=== PATIENT | male | born 1955 | race Caucasian/White ===

== ENCOUNTER → 2019-03-22 | Outpatient (CLI) | payer MEDICARE, BC | LOC: LL.CLIN 11:00 | PROVIDERS: ATTEND Orthopaedic Surgery | DX: M25.569 Pain in unspecified knee (principal); M76.892 Other specified enthesopathies of left lower limb, excluding foot; M76.891 Other specified enthesopathies of right lower limb, excluding foot; I99.8 Other disorder of circulatory system; M25.861 Other specified joint disorders, right knee | CPT/HCPCS: 73564-50; 99203 ==

== ENCOUNTER 2019-07-06 17:54 | Emergency (ER) | payer MEDICARE, BC ==
[2019-07-06 17:58] VITALS: BP 173/63; PULSE 65
--- NOTE | 2019-07-06 18:43 | EDM.PDOC ---
ED HPI GENERAL MEDICAL PROBLEM - General Chief Complaint: Chest Pain Stated Complaint: elevated lab Time Seen by Provider: 07/06/19 17:57 Source of Information: Reports: Patient, Family History Limitations: Reports: No Limitations - History of Present Illness INITIAL COMMENTS - FREE TEXT/NARRATIVE: Pt seen at outside clinic this AM for chest pain 4 days ago No pain since Does have significant cardiac history with 15 previous stents per patient Pt is currently symptoms free Was reported that troponin from this AM was elevated and pt sent to ER for recheck Consult has been placed for cardiology follow up Onset: Gradual Duration: Day(s):, Resolved Prior to Arrival Location: Reports: Chest Chest Pain Score (Numeric/FACES): 0 - Related Data Allergies Allergy/AdvReac Type Severity Reaction Status Date / Time alcohol Allergy Swelling Verified 11/18/16 12:56 morphine Allergy Swelling Verified 11/18/16 12:56 [id number]-Tjw Reductase Allergy Cough Verified 11/18/16 12:56 Inhibitor ticagrelor [From Brilinta] Allergy Difficulty Verified 07/06/19 18:02 Breathing Home Meds: Home Meds Aspirin 81 mg PO DAILY 02/14/16 [History] Cetirizine [ZyrTEC] 1 tab PO DAILY PRN 02/14/16 [History] Cyclobenzaprine [Flexeril] 1 - 2 tab PO BEDTIME PRN 02/14/16 [History] Gabapentin [Neurontin] 1,200 mg PO BID 02/14/16 [History] Insulin Aspart [NovoLOG] 5 units SQ ASDIRECTED 02/14/16 [History] Insulin Aspart [NovoLOG] 15 units SQ 0800,1200 02/14/16 [History] Insulin Degludec [Tresiba Flextouch U-200] 135 units SQ DAILY 02/14/16 [History] Isosorbide Mononitrate [Imdur] 30 mg PO DAILY 02/14/16 [History] Liraglutide [Victoza] 1.8 mg SQ DAILY 02/14/16 [History] Lisinopril 1 tab PO DAILY 02/14/16 [History] Metoprolol Succinate [Toprol XL] 25 mg PO DAILY 02/14/16 [History] Multivitamin with Minerals [Multiple Vitamin] 1 tab PO TIDMEALS 02/14/16 [ History] Non-Formulary Medication [NF Drug] 1 applic TOP BID PRN 02/14/16 [History] [place]-3/DHA/Epa/Fish Oil [Fish Oil Dr 500 mg Softgel] 1,000 mg PO DAILY [History] Pantoprazole [Protonix] 40 mg PO DAILY 02/14/16 [History] metFORMIN HCl [Metformin HCl ER] 1,000 mg PO BID 02/14/16 [History] Albuterol [Ventolin HFA] 1 - 2 puff INH QID PRN 11/18/16 [History] Fluticasone/Vilanterol [Breo Ellipta 100-25 MCG Inhalation Kit] 1 puff PO DAILY 11/18/16 [History] Prasugrel [Effient] 10 mg PO DAILY 11/18/16 [History] Insulin Aspart [Novolog Flexpen] 18 units SQ 1800 11/19/16 [History] Past Medical History HEENT History: Reports: Cataract, Hard of Hearing, Impaired Vision Cardiovascular History: Reports: Arrhythmia, Bypass, CAD, High Cholesterol, Hypertension, Stents, Other (See Below) Respiratory History: Reports: Asthma, SOB Gastrointestinal History: Reports: GERD, Hemorrhoids Musculoskeletal History: Reports: Back Pain, Chronic Neurological History: Reports: Neuropathy, Diabetic Endocrine/Metabolic History: Reports: Diabetes, Type II, Obesity/BMI 30+ - Infectious Disease History Infectious Disease History: Reports: Chicken Pox, Measles, Mumps - Past Surgical History Head Surgeries/Procedures: Reports: None HEENT Surgical History: Reports: Adenoidectomy, Cataract Surgery, Tonsillectomy Cardiovascular Surgical History: Reports: Coronary Artery Bypass, Coronary Artery Stent Respiratory Surgical History: Reports: None GI Surgical History: Reports: Colonoscopy, EGD Neurological Surgical History: Reports: None Social & Family History - Family History Cardiac: Reports: CAD, [place] - Caffeine Use Caffeine Use: Reports: Coffee ED ROS GENERAL - Review of Systems Review Of Systems: See Below HEENT: Reports: No Symptoms Respiratory: Reports: No Symptoms Cardiovascular: Reports: Chest Pain GI/Abdominal: Reports: No Symptoms ED EXAM, GENERAL - Physical Exam Exam: See Below Exam Limited By: No Limitations General Appearance: No Apparent Distress Neck: Supple Respiratory/Chest: Lungs Clear Cardiovascular: Regular Rate, Rhythm GI/Abdominal: Non-Tender Course - Vital Signs Last Recorded V/S: Last Vital Signs Temp 97.9 F 07/06/19 17:56 Pulse 65 07/06/19 17:56 Resp 20 02/27/20 17:56 BP 173/63 H 07/06/19 17:56 Pulse Ox 100 07/06/19 17:56 - Orders/Labs/Meds Orders: Active Orders 24 hr Category Date Time Status EKG Documentation Completion [RC] ASDIRECTED Care 07/06/19 17:58 Active Labs: Laboratory Tests 07/06/19 07/06/19 Range/Units 18:08 18:08 WBC 8.2 (4.0-10.2) K/uL RBC 4.25 L (4.33-5.41) M/uL Hgb 12.9 L (13.1-16.8) g/dL Hct 39.1 (39.0-49.0) % MCV 92.0 (84.0-98.0) fL MCH 30.4 (28.2-33.3) pg MCHC 33.0 (31.7-36.0) g/dL RDW 14.1 (11.2-14.1) % Plt Count 145 L (150-350) K/uL Neut % (Auto) 48.7 (45.0-80.0) % Lymph % (Auto) 37.7 (10.0-50.0) % [place] % (Auto) 8.8 (2.0-14.0) % Eos % (Auto) 4.3 (0.0-5.0) % Baso % (Auto) 0.5 (0.0-2.0) % Neut # (Auto) 3.98 (1.40-7.00) K/uL Lymph # (Auto) 3.08 (0.50-3.50) K/uL [place] # (Auto) 0.72 (0.00-1.00) K/uL Eos # (Auto) 0.35 (0.00-0.50) K/uL Baso # (Auto) 0.04 (0.00-0.20) K/uL Sodium 139 (136-145) mmol/L Potassium 4.6 (3.5-5.1) mmol/L Chloride 102 (98-107) mmol/L Carbon Dioxide 27.1 (21.0-32.0) mmol/L BUN 31 H (7-18) mg/dL Creatinine 1.39 H (0.51-1.17) mg/dL Est Cr Clr Drug Dosing 57.38 mL/min Estimated GFR (MDRD) 51 mL/min Glucose 255 H (74-106) mg/dL Calcium 9.3 (8.5-10.1) mg/dL Total Bilirubin 0.2 (0.2-1.0) mg/dL AST 30 (15-37) U/L ALT 25 (12-78) U/L Alkaline Phosphatase 109 (46-116) IU/L Troponin I 0.044 (0.000-0.056) ng/mL Total Protein 7.1 (6.4-8.2) g/dL Albumin 3.8 (3.4-5.0) g/dL - Re-Assessments/Exams Free Text/Narrative Re-Assessment/Exam: 07/06/19 18:41 See EKG and lab Troponin WNL Pt asymptomatic D/W usual provider Will follow up and follow up on cardiology referral Departure - Departure Time of Disposition: 18:45 Disposition: Home, Self-Care 01 Clinical Impression: Coronary artery disease Qualifiers: Coronary Disease-Associated Artery/Lesion type: unspecified vessel or lesion type [place] vs. transplanted heart: [place] heart Associated angina: without angina Qualified Code(s): I25.10 - Atherosclerotic heart disease of [place] coronary artery without angina pectoris Instructions: Coronary Artery Disease, Male Referrals: Dorina Hooper PA-C [Primary Care Provider] - Additional Instructions: Follow up in clinic Sepsis Event Note - Evaluation Sepsis Screening Result: No Definite Risk - Focused Exam Vital Signs: Vital Signs Temp Pulse Resp BP Pulse Ox 07/06/19 17:56 97.9 F 65 20 173/63 H 100 Date Exam was Performed: 07/06/19 Time Exam was Performed: 18:38 - My Orders Last 24 Hours: My Active Orders 07/06/19 17:58 EKG Documentation Completion [RC] ASDIRECTED - Assessment/Plan Last 24 Hours: My Active Orders 07/06/19 17:58 EKG Documentation Completion [RC] ASDIRECTED
== END 2019-07-06 18:45 | disposition home or self-care (01) ==
LOC: LL.ED 17:54
DX: I25.10 Atherosclerotic heart disease of native coronary artery without angina pectoris (principal); E78.00 Pure hypercholesterolemia, unspecified; E11.9 Type 2 diabetes mellitus without complications; J45.909 Unspecified asthma, uncomplicated; E66.9 Obesity, unspecified; Z68.36 Body mass index [BMI] 36.0-36.9, adult; K21.9 Gastro-esophageal reflux disease without esophagitis; E11.40 Type 2 diabetes mellitus with diabetic neuropathy, unspecified; Z79.4 Long term (current) use of insulin; Z95.5 Presence of coronary angioplasty implant and graft; Z88.5 Allergy status to narcotic agent; Z79.899 Other long term (current) drug therapy; Z88.8 Allergy status to other drugs, medicaments and biological substances
CPT/HCPCS: 36415; 80053; 84484; 85025; 93005; 99285-25

== ENCOUNTER 2019-12-19 14:30 | Observation (INO) | payer MEDICARE, BC ==
[2019-12-19] MEDS ORDERED: fentaNYL 100 MCG/2 ML SDV IVPUSH ONE (14:57)
[2019-12-19] MEDS ORDERED: diphenhydrAMINE 50 MG/ML SDV IVPUSH ONE (14:58)
[2019-12-19 15:15] LABS: CHLORIDE,CL 101 mmol/L (98-107); SODIUM,NA 137 mmol/L (136-145)
[2019-12-19] MEDS: Sodium Chloride 0.9% 10 ML Syringe FLUSH PRN ×2 (15:16→15:52)
[2019-12-19 15:18] LABS: PTT,PARTIAL THROMBOPLSTIN TIME 23.7 SEC (24.5-32.8)
[2019-12-19] MEDS ORDERED: HYDROmorphone 0.5 MG/0.5 ML Syringe IVPUSH ONE (15:47)
--- NOTE | 2019-12-19 16:30 | EDM.PDOC ---
ED HPI GENERAL MEDICAL PROBLEM - General Chief Complaint: Trauma Stated Complaint: trauma, fall Time Seen by Provider: 12/19/19 14:53 Source of Information: Reports: Patient History Limitations: Reports: No Limitations - History of Present Illness INITIAL COMMENTS - FREE TEXT/NARRATIVE: Patient comes to ER after falling off ladder approx 3 steps high. Landed on metal rail left lateral chest. Has left sided chest pain as main complaint. Also some left sided neck pain, left shoulder discomfort. ABle to get up and walk after incident. Got on 4 [address] and drove self to pickup, then drove pickup. No complaint of leg/pelvis pain. No LOC that he is aware of. Denies hitting head. No other injury complaints at this time. No increased SOB but left chest hurts with inspiration. - Related Data Allergies Allergy/AdvReac Type Severity Reaction Status Date / Time alcohol Allergy Swelling Verified 12/19/19 15:46 morphine Allergy Swelling Verified 12/19/19 15:46 Lvfjyhc-Yvu-Ume Reductase Allergy Cough Verified 12/19/19 15:46 Inhibitor ticagrelor [From Brilinta] Allergy Difficulty Verified 12/19/19 15:46 Breathing Home Meds: Home Meds Aspirin 81 mg PO DAILY 02/14/16 [History] Gabapentin [Neurontin] 600 mg PO DAILY@02/14/16 [History] Insulin Degludec [Tresiba Flextouch U-200] 140 units SQ DAILY 02/14/16 [History] Isosorbide Mononitrate [Imdur] 30 mg PO DAILY@02/14/16 [History] Liraglutide [Victoza] 1.8 mg SQ DAILY 02/14/16 [History] Lisinopril 1 tab PO DAILY 02/14/16 [History] Metoprolol Succinate [Toprol XL] 50 mg PO BEDTIME 02/14/16 [History] Non-Formulary Medication [NF Drug] 1 applic TOP BID PRN 02/14/16 [History] Pantoprazole [Protonix] 40 mg PO DAILY 02/14/16 [History] metFORMIN HCl [Metformin HCl ER] 1,000 mg PO BID 02/14/16 [History] Albuterol [Ventolin HFA] 1 - 2 puff INH QID PRN 11/18/16 [History] Fluticasone/Vilanterol [Breo Ellipta 100-25 MCG Inhalation Kit] 1 puff PO DAILY 11/18/16 [History] Prasugrel [Effient] 10 mg PO DAILY 11/18/16 [History] Insulin Aspart [Novolog Flexpen] 20 units SQ 10,16,22 11/19/16 [History] Acetaminophen [Tylenol Extra Strength] 1,000 mg PO Q4H PRN 12/19/19 [History] Allopurinol [Zyloprim] 300 mg PO DAILY 12/19/19 [History] Cyanocobalamin (Vitamin B-12) [Vitamin B-12] 1,000 mcg PO DAILY 12/19/19 [Hi story] Diclofenac Sodium [Voltaren 1% Gel] 1 applic TOP BID PRN 12/19/19 [History] Fenofibrate 160 mg PO TUTHSA@12/19/19 [History] Fexofenadine [Maida] 180 mg PO DAILY 12/19/19 [History] Furosemide [Lasix] 10 mg PO DAILY 12/19/19 [History] Nitroglycerin 0.2 mg SL ASDIRECTED PRN 12/19/19 [History] Non-Formulary Medication [NF Drug] 1 applic TOP ASDIRECTED PRN 12/19/19 [History] Non-Formulary Medication [NF Drug] 1 each PO DAILY 12/19/19 [History] Non-Formulary Medication [NF Drug] 1 each TOP ASDIRECTED PRN 12/19/19 [History] Oxymetazoline [Nasal Decongestant] 1 spray NASBOTH BID PRN 12/19/19 [History] Ranolazine [Ranexa] 500 mg PO DAILY@12/19/19 [History] Rosuvastatin [Crestor] 2.5 mg PO MOWEFR@12/19/19 [History] Tamsulosin HCl [Flomax] 0.4 mg PO DAILY 12/19/19 [History] tiZANidine [Zanaflex] 2 - 4 mg PO Q8H PRN 12/19/19 [History] traMADol [Ultram] 50 mg PO Q8H PRN 12/19/19 [History] Past Medical History HEENT History: Reports: Cataract, Hard of Hearing, Impaired Vision Cardiovascular History: Reports: Arrhythmia, Bypass, CAD, High Cholesterol, Hypertension, Stents Respiratory History: Reports: Asthma, SOB Gastrointestinal History: Reports: GERD, Hemorrhoids Musculoskeletal History: Reports: Back Pain, Chronic Neurological History: Reports: Neuropathy, Diabetic Endocrine/Metabolic History: Reports: Diabetes, Type II, Obesity/BMI 30+ - Infectious Disease History Infectious Disease History: Reports: Chicken Pox, Measles, Mumps - Past Surgical History Head Surgeries/Procedures: Reports: None HEENT Surgical History: Reports: Adenoidectomy, Cataract Surgery, Tonsillectomy Cardiovascular Surgical History: Reports: Coronary Artery Bypass, Coronary Artery Stent Respiratory Surgical History: Reports: None GI Surgical History: Reports: Colonoscopy, EGD Neurological Surgical History: Reports: None Social & Family History - Family History Cardiac: Reports: CAD, [place] - Tobacco Use Smoking Status *Q: Never Smoker - Caffeine Use Caffeine Use: Reports: Coffee Review of Systems - Review of Systems Review Of Systems: See Below Constitutional: Reports: No Symptoms Eyes: Reports: No Symptoms Ears: Reports: No Symptoms Nose: Reports: No Symptoms Mouth/Throat: Reports: No Symptoms Respiratory: Reports: Pleuritic Chest Pain Cardiovascular: Reports: Other (left lateral chest pain) GI/Abdominal: Reports: No Symptoms, Abdominal Pain Genitourinary: Reports: No Symptoms Musculoskeletal: Reports: Neck Pain (left), Shoulder Pain (left), Back Pain (chronic low back pain). Denies: Arm Pain, Hand Pain, Leg Pain, Foot Pain Skin: Reports: Other (Has chronic issues with blister-like formations anterior shins) Neurological: Reports: No Symptoms Psychiatric: Reports: No Symptoms ED EXAM, GENERAL - Physical Exam Exam: See Below Free Text/Narrative:: Patient wearing C-collar that was placed at time of arrival. General Appearance: Alert, Moderate Distress, Obese Eye Exam: Bilateral Eye: EOMI, PERRL Ears: Normal Canal, Hearing Grossly Normal Nose: No: Nasal Deformity, Nasal Swelling, Nasal Drainage Throat/Mouth: Normal Lips, Normal Voice, No Airway Compromise Head: Atraumatic, Normocephalic Neck: Other (C-collar in place) Respiratory/Chest: No Respiratory Distress, Lungs Clear, Normal Breath Sounds, No Accessory Muscle Use, Other (left chest wall tender with palpation. No crepitus. More minor discomfort with palpation posterior left chest) Cardiovascular: Regular Rate, Rhythm, No Murmur GI/Abdominal: Soft, Non-Tender, No Distention (Male) Exam: Deferred Rectal (Males) Exam: Deferred Back Exam: Paraspinal Tenderness (left upper back, bilateral low back). No: Muscle Spasm, Vertebral Tenderness Extremities: Non-Tender, Normal Capillary Refill, Other (equal tone/strength bilat) Neurological: Alert, Oriented, Normal Cognition, No Motor/Sensory Deficits Psychiatric: Normal Affect, Normal Mood Skin Exam: Warm, Dry, Other (Has single long blister-like lesion left anterior burgos. No redness. Clear fluid. Non-draining. Has scattered hyperpigmented scars over both anterior shins that patient attributues to previous similar lesions. Blames it on diabetes. ) EKG INTERPRETATION EKG Date: 12/19/19 Time: 15:36 Rhythm: NSR Rate (Beats/Min): 69 [place]: Normal P-Wave: Present QRS: Normal ST-T: Other (no obvious change suggestive of acute ischemia) QT: Normal Comparison: No Change Course - Orders/Labs/Meds Orders: Active Orders 24 hr Category Date Time Status Cardiac Monitoring [RC] . DIRECTED Care 12/19/19 15:14 Active EKG Documentation Completion [RC] ASDIRECTED Care 12/19/19 15:34 Active Peripheral IV Care [RC] . DIRECTED Care 12/19/19 14:40 Active Cervical Spine wo Cont [CT] Stat Exams 12/19/19 15:12 Ordered Chest wo Cont [CT] Stat Exams 12/19/19 15:11 Ordered Shoulder 1V Lt [CR] Stat Exams 12/19/19 15:15 Ordered Sodium Chloride 0.9% [Saline Flush] Med 12/19/19 14:40 Active 10 ml FLUSH ASDIRECTED PRN Peripheral IV Insertion Adult [OM.PC] Routine Oth 12/19/19 14:40 Ordered Medication Orders Sodium Chloride (Saline Flush) 10 ml FLUSH ASDIRECTED PRN PRN Reason: Keep Vein Open Last Admin: 12/19/19 15:52 Dose: 10 ml Documented by: Admin: 12/19/19 15:16 Dose: 10 ml Documented by: ROCIO Labs: Laboratory Tests 12/19/19 12/19/19 12/19/19 Range/Units 14:50 14:50 14:50 WBC 8.2 (4.0-10.2) K/uL RBC 4.13 L (4.33-5.41) M/uL Hgb 12.7 L (13.1-16.8) g/dL Hct 37.9 L (39.0-49.0) % MCV 91.8 (84.0-98.0) fL MCH 30.8 (28.2-33.3) pg MCHC 33.5 (31.7-36.0) g/dL RDW 13.4 (11.2-14.1) % Plt Count 149 L (150-350) K/uL Neut % (Auto) 59.2 (45.0-80.0) % Lymph % (Auto) 28.3 (10.0-50.0) % [place] % (Auto) 7.2 (2.0-14.0) % Eos % (Auto) 4.9 (0.0-5.0) % Baso % (Auto) 0.4 (0.0-2.0) % Neut # (Auto) 4.85 (1.40-7.00) K/uL Lymph # (Auto) 2.32 (0.50-3.50) K/uL [place] # (Auto) 0.59 (0.00-1.00) K/uL Eos # (Auto) 0.40 (0.00-0.50) K/uL Baso # (Auto) 0.03 (0.00-0.20) K/uL PT 9.3 L (9.5-12.0) SEC INR 0.9 APTT 23.7 L (24.5-32.8) SEC Sodium 137 (136-145) mmol/L Potassium 5.0 (3.5-5.1) mmol/L Chloride 101 (98-107) mmol/L Carbon Dioxide 25.8 (21.0-32.0) mmol/L BUN 28 H (7-18) mg/dL Creatinine 1.59 H (0.51-1.17) mg/dL Est Cr Clr Drug Dosing TNP Estimated GFR (MDRD) 44 mL/min Glucose 409 H* (74-106) mg/dL Calcium 9.1 (8.5-10.1) mg/dL Total Bilirubin 0.4 (0.2-1.0) mg/dL AST 34 (15-37) U/L ALT 27 (12-78) U/L Alkaline Phosphatase 136 H (46-116) IU/L Total Protein 7.2 (6.4-8.2) g/dL Albumin 3.6 (3.4-5.0) g/dL Meds: Medications Generic Name Dose Route Start Last Admin Trade Name Jayla PRN Reason Stop Dose Admin Sodium Chloride 10 ml 12/19/19 14:40 12/19/19 15:52 Saline Flush FLUSH 10 ml ASDIRECTED PRN Administration Keep Vein Open Discontinued Medications Generic Name Dose Route Start Last Admin Trade Name Jayla PRN Reason Stop Dose Admin Diphenhydramine HCl 50 mg 12/19/19 14:58 12/19/19 15:00 Benadryl IVPUSH 12/19/19 14:59 50 mg ONETIME ONE Administration Fentanyl 100 mcg 12/19/19 14:57 12/19/19 15:00 Sublimaze IVPUSH 12/19/19 14:58 100 mcg ONETIME ONE Administration Hydromorphone HCl 0.5 mg 12/19/19 15:47 12/19/19 15:51 Dilaudid IVPUSH 12/19/19 15:48 0.5 mg ONETIME ONE Administration - Radiology Interpretation Free Text/Narrative:: Plain film of left shoulder, CT of neck and chest performed. Reviewed by Radiology. Unremarkable for acute injury except for acute fractures of left lateral ribs 7,8,9 Noted to have severe degenerative changes of C-spine with neural foraminal narrowing c3-4 - Re-Assessments/Exams Free Text/Narrative Re-Assessment/Exam: 12/19/19 16:37 Trauma code called. Patient complaining of severe pain left chest. Given Fentanyl but minimal help. Initially plain films of chest/shoulder/neck ordered. Given the difficulty patient had moving around/transferring even with pain meds, plain films were switched to CT of neck and chest. Basic labs ordered. Glucose elevated. Renal insufficiency. Radiology reviewed studies and noted rib fractures left 7-9 ribs. Patient given dose of Dilaudid which seemed to help more than Fentanyl. Plan at this time is to admit patient observation for pain management and assistance with ADLs. Trauma code ended 1600. C-collar removed once Radiology results faxed to us at 16:09 Departure - Departure Time of Disposition: 16:40 Disposition: Refer to Observation Condition: Good Clinical Impression: Fall from ladder Qualifiers: Encounter type: initial encounter Qualified Code(s): W11.XXXA - Fall on and from ladder, initial encounter Multiple rib fractures Qualifiers: Encounter type: initial encounter Fracture type: closed Laterality: left Qualified Code(s): S22.42XA - Multiple fractures of ribs, left side, initial encounter for closed fracture - Discharge Information *PRESCRIPTION DRUG MONITORING PROGRAM REVIEWED*: Not Applicable *COPY OF PRESCRIPTION DRUG MONITORING REPORT IN PATIENT JAGUAR: Not Applicable Referrals: PCP,Unknown [Ordering Only Provider] - - Problem List & Annotations (1) Multiple rib fractures SNOMED Code(s): 9525591 Code(s): S22.49XA - MULTIPLE FRACTURES OF RIBS, UNSP SIDE, INIT FOR CLOS FX Status: Acute Priority: High Current Visit: Yes Annotation/Comment:: Patient complaining of significant pain. Admit observation for pain management and assistance with ADLs Qualifiers: Encounter type: initial encounter Fracture type: closed Laterality: left (2) IDDM (insulin dependent diabetes mellitus) SNOMED Code(s): 58868517 Code(s): QOZ1618 - Status: Chronic Priority: Low Current Visit: Yes Annotation/Comment:: Accuchecks ordered. Observe (3) Coronary artery disease SNOMED Code(s): 48075559 Code(s): I25.10 - ATHSCL HEART DISEASE OF [place] CORONARY ARTERY W/O ANG PCTRS Status: Chronic Priority: Low Current Visit: No Annotation/Comment:: No chest pain/anginal complaints at this time. Previous triple bypass and over a dozen stents placed Qualifiers: Coronary Disease-Associated Artery/Lesion type: bypass graft [place] vs. transplanted heart: [place] heart Associated angina: without angina Qualified Code(s): I25.810 - Atherosclerosis of coronary artery bypass graft(s) without angina pectoris (4) Hyperlipidemia SNOMED Code(s): 47178717 Code(s): E78.5 - HYPERLIPIDEMIA, UNSPECIFIED Status: Chronic Priority: Low Current Visit: Yes Annotation/Comment:: Follow up with primary provider Qualifiers: Hyperlipidemia type: unspecified Qualified Code(s): E78.5 - Hyperlipidemia, unspecified (5) Hypertension SNOMED Code(s): 36551118 Code(s): I10 - ESSENTIAL (PRIMARY) HYPERTENSION Status: Chronic Priority: Low Current Visit: No Annotation/Comment:: Observe trends Qualifiers: Hypertension type: essential hypertension Qualified Code(s): I10 - Essential (primary) hypertension (6) Asthma SNOMED Code(s): 733690302 Code(s): J45.909 - UNSPECIFIED ASTHMA, UNCOMPLICATED Status: Chronic Priority: Low Current Visit: No Annotation/Comment:: Has been stable per history Qualifiers: Asthma severity: unspecified severity Asthma persistence: unspecified Asthma complication type: uncomplicated Qualified Code(s): J45.909 - Unspecified asthma, uncomplicated (7) GERD (gastroesophageal reflux disease) SNOMED Code(s): 849252105 Code(s): K21.9 - GASTRO-ESOPHAGEAL REFLUX DISEASE WITHOUT ESOPHAGITIS Status: Chronic Priority: Low Current Visit: No Annotation/Comment:: stable per history Qualifiers: Esophagitis presence: esophagitis presence not specified Qualified Code(s): K21.9 - Gastro-esophageal reflux disease without esophagitis (8) Chronic back pain SNOMED Code(s): 273455073 Code(s): M54.9 - DORSALGIA, UNSPECIFIED; G89.29 - OTHER CHRONIC PAIN Status: Chronic Priority: Medium Current Visit: Yes Annotation/Comment:: C hronic bilateral pain/worse in low back. Wears TENS unit at night. Qualifiers: Back pain location: back pain in unspecified location Back pain laterality: bilateral Qualified Code(s): M54.9 - Dorsalgia, unspecified; G89.29 - Other chronic pain (9) Diabetic neuropathy SNOMED Code(s): 680849097, 698813777, 761637648 Code(s): E11.40 - TYPE 2 DIABETES MELLITUS WITH DIABETIC NEUROPATHY, UNSP Status: Chronic Priority: Medium Current Visit: Yes Annotation/Comment:: stable per history Qualifiers: Diabetes mellitus type: type 2 Diabetes mellitus complication detail: diabetic polyneuropathy Qualified Code(s): E11.42 - Type 2 diabetes mellitus with diabetic polyneuropathy - Problem List Review Problem List Initiated/Reviewed/Updated: Yes - My Orders Last 24 Hours: My Active Orders 12/19/19 14:40 Peripheral IV Care [RC] . DIRECTED Sodium Chloride 0.9% [Saline Flush] 10 ml FLUSH ASDIRECTED PRN Peripheral IV Insertion Adult [OM.PC] Routine 12/19/19 15:11 Chest wo Cont [CT] Stat 12/19/19 15:12 Cervical Spine wo Cont [CT] Stat 12/19/19 15:14 Cardiac Monitoring [RC] . DIRECTED 12/19/19 15:15 Shoulder 1V Lt [CR] Stat 12/19/19 15:34 EKG Documentation Completion [RC] ASDIRECTED - Assessment/Plan Admission H&P: Please use this note as an admission H&P Last 24 Hours: My Active Orders 12/19/19 14:40 Peripheral IV Care [RC] . DIRECTED Sodium Chloride 0.9% [Saline Flush] 10 ml FLUSH ASDIRECTED PRN Peripheral IV Insertion Adult [OM.PC] Routine 12/19/19 15:11 Chest wo Cont [CT] Stat 12/19/19 15:12 Cervical Spine wo Cont [CT] Stat 12/19/19 15:14 Cardiac Monitoring [RC] . DIRECTED 12/19/19 15:15 Shoulder 1V Lt [CR] Stat 12/19/19 15:34 EKG Documentation Completion [RC] ASDIRECTED Assessment:: as above. STable and appropriate for general supervision Plan: as above. Anticipate 24-48 hour stay depending on clinical course and response to pain medication.
[2019-12-19] MEDS ORDERED: Ondansetron 4 MG/2 ML SDV IVPUSH PRN (16:56)
[2019-12-19] MEDS ORDERED: Nitroglycerin 0.4 MG Tab.SL SL PRN (17:01)
[2019-12-19] MEDS ORDERED: Non-Formulary Medication 1 Each (Diclofenac Sodium [Voltaren 1% Gel] 1 APPLIC) TOP PRN (17:01)
[2019-12-19] MEDS ORDERED: OXYMETAZOLINE NASBOTH PRN (17:01)
[2019-12-19] MEDS ORDERED: Insulin Regular, Human 100 Units/ML 3 ML Vial SUBCUT ONE (17:06)
[2019-12-19] MEDS ORDERED: Albuterol 8 GM Inhaler INH PRN (18:09)
[2019-12-19] MEDS ORDERED: tiZANidine 4 MG Tab PO PRN (18:14)
[2019-12-19] MEDS ORDERED: Fenofibrate,Micronized 134 MG Cap PO SCH (20:00)
[2019-12-19] MEDS: Metoprolol Succinate 50 MG Tab.ER PO SCH (20:11)
[2019-12-19] MEDS: Gabapentin 300 MG Cap PO SCH (20:11)
[2019-12-19] MEDS: traMADol 50 MG Tab PO PRN (20:11)
[2019-12-19] MEDS: Isosorbide Mononitrate 30 MG Tab.ER PO SCH (20:11)
[2019-12-19] MEDS: RANOLAZINE 500 MG PO SCH (20:36)
[2019-12-19] MEDS ORDERED: INSULIN ASPART 20 UNIT SQ SCH (22:00)
[2019-12-19] MEDS ORDERED: Insulin Lispro 100 Units/ML 3 ML Vial SUBCUT SCH (22:00)
[2019-12-19] MEDS: Insulin Lispro 100 Units/ML 3 ML Vial SUBCUT SCH (23:09)
[2019-12-19] MEDS: HYDROmorphone 1 MG/ML Syringe IVPUSH PRN (23:15)
[2019-12-20] MEDS: HYDROmorphone 1 MG/ML Syringe IVPUSH PRN (05:23)
[2019-12-20] MEDS: VILANTEROL PO SCH ×2 (07:45→09:55)
[2019-12-20] MEDS: [UNRECOGNIZED DRUG - OTHER] PO SCH ×2 (07:45→09:55)
[2019-12-20] MEDS: Tamsulosin 0.4 MG Cap.ER PO SCH (07:51)
[2019-12-20] MEDS: metFORMIN 500 MG Tab.ER PO SCH ×2 (07:51→17:09)
[2019-12-20] MEDS: Aspirin 81 MG Tab.Chew PO SCH (07:51)
[2019-12-20] MEDS: Gabapentin 300 MG Cap PO SCH ×2 (07:52→20:07)
[2019-12-20] MEDS: Pantoprazole 40 MG Tab.CR PO SCH (07:53)
[2019-12-20] MEDS: Furosemide 20 MG Tab PO SCH (07:53)
[2019-12-20] MEDS: Lisinopril 5 MG Tab PO SCH (07:55)
[2019-12-20] MEDS: Allopurinol 100 MG Tab PO SCH (07:56)
[2019-12-20] MEDS: Isosorbide Mononitrate 30 MG Tab.ER PO SCH ×2 (07:56→20:08)
[2019-12-20] MEDS: RANOLAZINE 500 MG PO SCH ×2 (08:00→21:05)
[2019-12-20] MEDS: TRESIBA U SQ SCH (08:00)
[2019-12-20] MEDS: PRASUGREL 10 MG PO SCH (08:00)
[2019-12-20] MEDS: LIRAGLUTIDE 1.8 MG SQ SCH (08:02)
[2019-12-20] MEDS: traMADol 50 MG Tab PO PRN ×3 (08:12→17:09)
[2019-12-20] MEDS: Insulin Lispro 100 Units/ML 3 ML Vial SUBCUT SCH ×3 (09:55→21:05)
[2019-12-20] MEDS: Sodium Chloride 0.9% 10 ML Syringe FLUSH PRN ×2 (09:58→20:12)
--- NOTE | 2019-12-20 19:37 | PCM.DCSUM1 ---
Discharge Summary - Hospital Course Brief History: Admitted for pain management after suffering 3 left sided rib fractures due to fall Diagnosis: Stroke: No - Discharge Data Discharge Date: 12/21/19 Discharge Disposition: Home, Self-Care 01 Condition: Good - Referral to Home Health Primary Care Physician: Dorina Curtis NP - Discharge Diagnosis/Problem(s) (1) Multiple rib fractures SNOMED Code(s): 9578930 ICD Code: S22.49XA - MULTIPLE FRACTURES OF RIBS, UNSP SIDE, INIT FOR CLOS FX Status: Acute Priority: High Current Visit: Yes Problem Details: Patient complaining of significant pain. Admitted observation for pain management and assistance with ADLs. Qualifiers: Encounter type: initial encounter Fracture type: closed Laterality: left Qualified Code(s): S22.42XA - Multiple fractures of ribs, left side, initial encounter for closed fracture (2) Recurrent falls SNOMED Code(s): 554273645 ICD Code: R29.6 - REPEATED FALLS Status: Acute Priority: High Current Visit: Yes Problem Details: Has been having problems with falling recently. 3 episodes this past week. Has appointment with Neurology in [place] tomorrow for evaluation after discharge from hospital. (3) IDDM (insulin dependent diabetes mellitus) SNOMED Code(s): 51572217 ICD Code: [id number] - Status: Chronic Priority: Low Current Visit: Yes Problem Details: Accuchecks ordered. Follow up with primary provider (4) Coronary artery disease SNOMED Code(s): 96558046 ICD Code: I25.10 - ATHSCL HEART DISEASE OF [place] CORONARY ARTERY W/O ANG PCTRS Status: Chronic Priority: Low Current Visit: No Problem Details: No chest pain/anginal complaints at this time. Previous triple bypass and over a dozen stents placed Qualifiers: Coronary Disease-Associated Artery/Lesion type: bypass graft [place] vs. transplanted heart: [place] heart Associated angina: without angina Qualified Code(s): I25.810 - Atherosclerosis of coronary artery bypass graft(s) without angina pectoris (5) Hyperlipidemia SNOMED Code(s): 81027690 ICD Code: E78.5 - HYPERLIPIDEMIA, UNSPECIFIED Status: Chronic Priority: Low Current Visit: Yes Problem Details: Follow up with primary provider Qualifiers: Hyperlipidemia type: unspecified Qualified Code(s): E78.5 - Hyperlipidemia, unspecified (6) Hypertension SNOMED Code(s): 20251013 ICD Code: I10 - ESSENTIAL (PRIMARY) HYPERTENSION Status: Chronic Priority: Low Current Visit: No Problem Details: Observe trends Qualifiers: Hypertension type: essential hypertension Qualified Code(s): I10 - Essential (primary) hypertension (7) Asthma SNOMED Code(s): 178438098 ICD Code: J45.909 - UNSPECIFIED ASTHMA, UNCOMPLICATED Status: Chronic Priority: Low Current Visit: No Problem Details: Has been stable per history Qualifiers: Asthma severity: unspecified severity Asthma persistence: unspecified Asthma complication type: uncomplicated Qualified Code(s): J45.909 - Unspecified asthma, uncomplicated (8) GERD (gastroesophageal reflux disease) SNOMED Code(s): 392974273 ICD Code: K21.9 - GASTRO-ESOPHAGEAL REFLUX DISEASE WITHOUT ESOPHAGITIS Status: Chronic Priority: Low Current Visit: No Problem Details: stable per history Qualifiers: Esophagitis presence: esophagitis presence not specified Qualified Code(s): K21.9 - Gastro-esophageal reflux disease without esophagitis (9) Chronic back pain SNOMED Code(s): 549598977 ICD Code: M54.9 - DORSALGIA, UNSPECIFIED; G89.29 - OTHER CHRONIC PAIN Status: Chronic Priority: Medium Current Visit: Yes Problem Details: Ch ronic bilateral pain/worse in low back. Wears TENS unit at night. Qualifiers: Back pain location: back pain in unspecified location Back pain laterality: bilateral Qualified Code(s): M54.9 - Dorsalgia, unspecified; G89.29 - Other chronic pain (10) Diabetic neuropathy SNOMED Code(s): 778519140, 315743267, 664475136 ICD Code: E11.40 - TYPE 2 DIABETES MELLITUS WITH DIABETIC NEUROPATHY, UNSP Status: Chronic Priority: Medium Current Visit: Yes Problem Details: stable per history Qualifiers: Diabetes mellitus type: type 2 Diabetes mellitus complication detail: diabetic polyneuropathy Qualified Code(s): E11.42 - Type 2 diabetes mellitus with diabetic polyneuropathy - Patient Summary/Data Consults: Consultations 12/20/19 10:41 Consult to Physical Therapy [PT Evaluation and Treatment] [CONS] Routine Hospital Course: Pain improved with time and pain medications. Is currently between 3-4 for pain severity. Switched over to oral pain meds this afternoon. Evaluated by PT today to develop strategies to accomplish ADLs while rib fractures heal. Discharge home tomorrow. He will be seeing Neurology tomorrow afternoon as part of a workup for recent issues with falling. - Patient Instructions Diet: Usual Diet as Tolerated Activity: As Tolerated Driving: Do Not Drive Showering/Bathing: May Shower Other/Special Instructions: Take Tramadol 1 tab every 4-6 hours as needed for rib pain. You have some at home. You were given a refill Rx today for additional tablets. Follow up with your primary provider next week for recheck and refills of pain meds if indicated. Continue using the incentive spirometer every 1-2 hours to excercise your lungs until fractures have healed. Call if you have questions. Follow up otherwise as needed if you have problems. - Discharge Plan *PRESCRIPTION DRUG MONITORING PROGRAM REVIEWED*: Not Applicable *COPY OF PRESCRIPTION DRUG MONITORING REPORT IN PATIENT JAGUAR: Not Applicable Home Medications: Home Meds Aspirin 81 mg PO DAILY 02/14/16 [History] Gabapentin [Neurontin] 600 mg PO DAILY@02/14/16 [History] Insulin Degludec [Tresiba Flextouch U-200] 140 units SQ DAILY 02/14/16 [History] Isosorbide Mononitrate [Imdur] 30 mg PO DAILY@02/14/16 [History] Liraglutide [Victoza] 1.8 mg SQ DAILY 02/14/16 [History] Lisinopril 1 tab PO DAILY 02/14/16 [History] Metoprolol Succinate [Toprol XL] 50 mg PO BEDTIME 02/14/16 [History] Non-Formulary Medication [NF Drug] 1 applic TOP BID PRN 02/14/16 [History] Pantoprazole [ProTONIX] 40 mg PO DAILY 02/14/16 [History] metFORMIN HCl [Metformin ER Osmotic] 1,000 mg PO BID 02/14/16 [History] Albuterol [Ventolin HFA] 1 - 2 puff INH QID PRN 11/18/16 [History] Fluticasone/Vilanterol [Breo Ellipta 100-25 MCG Inhalation Kit] 1 puff PO DAILY 11/18/16 [History] Prasugrel [Effient] 10 mg PO DAILY 11/18/16 [History] Insulin Aspart [Novolog Flexpen] 20 units SQ ,22 11/19/16 [History] Acetaminophen [Tylenol Extra Strength] 1,000 mg PO Q4H PRN 12/19/19 [History] Allopurinol [Zyloprim] 300 mg PO DAILY 12/19/19 [History] Cyanocobalamin (Vitamin B-12) [Vitamin B-12] 1,000 mcg PO DAILY 12/19/19 [History] Diclofenac Sodium [Voltaren 1% Gel] 1 applic TOP BID PRN 12/19/19 [History] Fenofibrate 160 mg PO TUTHSA@12/19/19 [History] Fexofenadine [Maida] 180 mg PO DAILY 12/19/19 [History] Furosemide [Lasix] 10 mg PO DAILY 12/19/19 [History] Nitroglycerin 0.2 mg SL ASDIRECTED PRN 12/19/19 [History] Non-Formulary Medication [NF Drug] 1 applic TOP ASDIRECTED PRN 12/19/19 [History] Non-Formulary Medication [NF Drug] 1 each PO DAILY 12/19/19 [History] Non-Formulary Medication [NF Drug] 1 each TOP ASDIRECTED PRN 12/19/19 [History] Oxymetazoline [Afrin Original 0.05% Nasal [place]] 1 spray NASBOTH BID PRN 12/19/19 [History] Ranolazine [Ranexa] 500 mg PO DAILY@12/19/19 [History] Rosuvastatin [Crestor] 2.5 mg PO MOWEFR@12/19/19 [History] Tamsulosin HCl [Flomax] 0.4 mg PO DAILY 12/19/19 [History] tiZANidine [Zanaflex] 2 - 4 mg PO Q8H PRN 12/19/19 [History] traMADol [Ultram] 50 mg PO Q8H PRN 12/19/19 [History] Patient Handouts: Hydromorphone injection, How to Use an Incentive Spirometer, Rib Fracture, [id number]-[id number] Forms: ED Department Discharge Referrals: PCP,Unknown [Ordering Only Provider] - - Discharge Summary/Plan Comment DC Time >30 min.: Yes (Discharge tomorrow morning) - General Info Date of Service: 12/20/19 Admission Dx/Problem (Free Text: Multiple left sided rib fractures Subjective Update: Feels improved. Pain down to 3-4/10. No new complaints. Functional Status: Reports: Pain Controlled, Tolerating Diet, Ambulating, Urinating, Incentive Spirometry. Denies: New Symptoms - Review of Systems General: Reports: No Symptoms HEENT: Reports: No Symptoms Pulmonary: Reports: No Symptoms Cardiovascular: Reports: No Symptoms Gastrointestinal: Reports: No Symptoms Genitourinary: Reports: No Symptoms Musculoskeletal: Reports: Other (chest wall pain left) Skin: Reports: Other (blister anterior left burgos) Neurological: Reports: No Symptoms Psychiatric: Reports: No Symptoms - Patient Data Vitals - Most Recent: Last Vital Signs Temp 36.2 C 12/20/19 18:00 Pulse 75 12/20/19 18:00 Resp 16 12/20/19 18:00 BP 116/56 L 12/20/19 18:00 Pulse Ox 93 L 12/20/19 18:00 Weight - Most Recent: 120.202 kg I&O - Last 24 hours: Intake & Output 12/20/19 12/20/19 12/20/19 06:59 14:59 22:59 Intake Total 720 480 Output Total 500 Balance -500 720 480 Lab Results - Last 24 hrs: Laboratory Results - last 24 hr 12/19/19 12/20/19 12/20/19 Range/Units 22:02 07:43 11:35 POC Glucose 299 H* 252 H* 263 H* (65-110) mg/dl 12/20/19 Range/Units 17:08 POC Glucose 245 H (65-110) mg/dl Med Orders - Current: Current Medications Acetaminophen (Tylenol) 650 mg PO Q4H PRN PRN Reason: Pain (Mild 1-3)/fever Albuterol (Ventolin Hfa) 0 gm INH QID PRN PRN Reason: Shortness of Breath Allopurinol (Zyloprim) 300 mg PO DAILY REPLACED BY [facility] Last Admin: 12/20/19 07:56 Dose: 300 mg Documented by: Aspirin (Aspirin) 81 mg PO DAILY REPLACED BY [facility] Last Admin: 12/20/19 07:51 Dose: 81 mg Documented by: Fenofibrate (Fenofibrate) 134 mg PO TUTHSA@20 REPLACED BY [facility] Last Admin: 12/19/19 20:11 Dose: 134 mg Documented by: Fexofenadine HCl (Maida) 180 mg PO DAILY REPLACED BY [facility] Last Admin: 12/20/19 07:52 Dose: 180 mg Documented by: Furosemide (Lasix) 10 mg PO DAILY REPLACED BY [facility] Last Admin: 12/20/19 07:53 Dose: 10 mg Documented by: Gabapentin (Neurontin) 600 mg PO DAILY@ REPLACED BY [facility] Last Admin: 12/20/19 07:52 Dose: 600 mg Documented by: Hydromorphone HCl (Dilaudid) 0.5 mg IVPUSH Q2H PRN PRN Reason: Pain (severe 7-10) Last Admin: 12/20/19 05:23 Dose: 0.5 mg Documented by: Insulin Human Lispro (Humalog) 20 unit SUBCUT TID@1000,1600,2200 REPLACED BY [facility] Last Admin: 12/20/19 16:24 Dose: 20 units Documented by: Isosorbide Mononitrate (Imdur) 30 mg PO DAILY@ REPLACED BY [facility] Last Admin: 12/20/19 07:56 Dose: 30 mg Documented by: Lisinopril (Prinivil) 2.5 mg PO DAILY REPLACED BY [facility] Last Admin: 12/20/19 07:55 Dose: 2.5 mg Documented by: Metformin HCl (Glucophage Xr) 1,000 mg PO BID REPLACED BY [facility] Last Admin: 12/20/19 17:09 Dose: 1,000 mg Documented by: Metoprolol Succinate (Toprol Xl) 50 mg PO BEDTIME REPLACED BY [facility] Last Admin: 12/19/19 20:11 Dose: 50 mg Documented by: Nitroglycerin (Nitrostat) 0.2 mg SL ASDIRECTED PRN PRN Reason: Chest Pain Non-Formulary Medication (Diclofenac Sodium [Voltaren 1% Gel]) 1 applic TOP BID PRN PRN Reason: muscle aches Fluticasone/Vilanterol 100mcg/25mcg Breo Ellipta 1 puff PO DAILY REPLACED BY [facility] Last Admin: 12/20/19 09:55 Dose: 1 puff Documented by: Tresiba Flextouch U- (200Own Med) 140 units SQ DAILY REPLACED BY [facility] Last Admin: 12/20/19 08:00 Dose: 140 units Documented by: Liraglutide [Victoza (] 1.8 MgOwn Med) 1.8 mg SQ DAILY REPLACED BY [facility] Last Admin: 12/20/19 08:02 Dose: 1.8 mg Documented by: Non-Formulary Medication (Oxymetazoline [Afrin Original 0.05% Nasal [place]]) 1 spray NASBOTH BID PRN PRN Reason: nasal congestion Prasugrel 10 MgOwn (Med) 10 mg PO DAILY REPLACED BY [facility] Last Admin: 12/20/19 08:00 Dose: 10 mg Documented by: Ranolazine 500 Mg (Own Med) 500 mg PO DAILY@ REPLACED BY [facility] Last Admin: 12/20/19 08:00 Dose: 500 mg Documented by: Ondansetron HCl (Zofran) 4 mg IVPUSH Q6H PRN PRN Reason: Nausea/Vomiting Pantoprazole Sodium (Protonix) 40 mg PO DAILY REPLACED BY [facility] Last Admin: 12/20/19 07:53 Dose: 40 mg Documented by: Rosuvastatin Calcium (Crestor) 2.5 mg PO MOWEFR@ REPLACED BY [facility] Sodium Chloride (Saline Flush) 10 ml FLUSH ASDIRECTED PRN PRN Reason: Keep Vein Open Last Admin: 12/20/19 09:58 Dose: 10 ml Documented by: Tamsulosin HCl (Flomax) 0.4 mg PO DAILY REPLACED BY [facility] Last Admin: 12/20/19 07:51 Dose: 0.4 mg Documented by: Tizanidine HCl (Zanaflex) 0 mg PO Q8H PRN PRN Reason: Spasms Last Admin: 12/19/19 20:09 Dose: 4 mg Documented by: Tramadol HCl (Ultram) 50 mg PO Q4H PRN PRN Reason: Pain Last Admin: 12/20/19 17:09 Dose: 50 mg Documented by: Discontinued Medications Diphenhydramine HCl (Benadryl) 50 mg IVPUSH ONETIME ONE Stop: 12/19/19 14:59 Last Admin: 12/19/19 15:00 Dose: 50 mg Documented by: Fentanyl (Sublimaze) 100 mcg IVPUSH ONETIME ONE Stop: 12/19/19 14:58 Last Admin: 12/19/19 15:00 Dose: 100 mcg Documented by: Hydromorphone HCl (Dilaudid) 0.5 mg IVPUSH ONETIME ONE Stop: 12/19/19 15:48 Last Admin: 12/19/19 15:51 Dose: 0.5 mg Documented by: Insulin Human Lispro (Humalog) 0 unit SUBCUT TIDMEALS REPLACED BY [facility]; Protocol Last Admin: 12/20/19 06:23 Dose: Not Given Documented by: Insulin Human Regular (Humulin R) 8 unit SUBCUT ONETIME ONE Stop: 12/19/19 17:07 Last Admin: 12/19/19 17:49 Dose: 8 units Documented by: - Exam General: Reports: Alert, Oriented, Cooperative, No Acute Distress HEENT: Reports: Pupils Equal, Pupils Reactive, EOMI, Mucous Membr. Moist/[place] Neck: Reports: Supple Lungs: Reports: Clear to Auscultation, Normal Respiratory Effort Cardiovascular: Reports: Regular Rate, Regular Rhythm GI/Abdominal Exam: Soft, Non-Tender, Guarding (Male) Exam: Deferred Rectal (Males) Exam: Deferred Back Exam: Reports: Other (Has tenderness with palpation left chest wall). Denies: Vertebral Tenderness Extremities: Non-Tender, Normal Capillary Refill, Other (single clear small blister left anterior burgos) Skin: Reports: Warm, Dry Neurological: Reports: No New Focal Deficit Psy/Mental Status: Reports: Alert, Normal Affect, Normal Mood
[2019-12-20] MEDS ORDERED: Rosuvastatin 10 MG Tab PO SCH (20:00)
[2019-12-20] MEDS ORDERED: Magnesium Hydroxide 400 MG/5 ML Susp 30 ML Cup PO ONE (20:02)
[2019-12-20] MEDS ORDERED: Sennosides 8.6 MG Tab PO ONE (20:05)
[2019-12-20] MEDS: Acetaminophen 325 MG Tab PO PRN (20:08)
[2019-12-20] MEDS: Metoprolol Succinate 50 MG Tab.ER PO SCH (20:09)
[2019-12-21] MEDS: traMADol 50 MG Tab PO PRN ×2 (00:29→10:07)
[2019-12-21] MEDS: Acetaminophen 325 MG Tab PO PRN ×2 (02:47→08:05)
[2019-12-21] MEDS: Allopurinol 100 MG Tab PO SCH (08:02)
[2019-12-21] MEDS: Isosorbide Mononitrate 30 MG Tab.ER PO SCH (08:03)
[2019-12-21] MEDS: Gabapentin 300 MG Cap PO SCH (08:03)
[2019-12-21] MEDS: Tamsulosin 0.4 MG Cap.ER PO SCH (08:03)
[2019-12-21] MEDS: Lisinopril 5 MG Tab PO SCH (08:04)
[2019-12-21] MEDS: metFORMIN 500 MG Tab.ER PO SCH (08:04)
[2019-12-21] MEDS: Aspirin 81 MG Tab.Chew PO SCH (08:04)
[2019-12-21] MEDS: Pantoprazole 40 MG Tab.CR PO SCH (08:04)
[2019-12-21] MEDS: VILANTEROL PO SCH (08:05)
[2019-12-21] MEDS: Furosemide 20 MG Tab PO SCH (08:05)
[2019-12-21] MEDS: [UNRECOGNIZED DRUG - OTHER] PO SCH (08:05)
[2019-12-21] MEDS: RANOLAZINE 500 MG PO SCH (08:06)
[2019-12-21] MEDS: PRASUGREL 10 MG PO SCH (08:07)
[2019-12-21] MEDS: LIRAGLUTIDE 1.8 MG SQ SCH (08:07)
[2019-12-21] MEDS: TRESIBA U SQ SCH (08:09)
[2019-12-21] MEDS: Sodium Chloride 0.9% 10 ML Syringe FLUSH PRN (08:11)
[2019-12-21 08:13] VITALS: BP 121/65
--- NOTE | 2019-12-21 09:09 | PCM.SN.2 ---
- Free Text/Narrative Note: Patient continues to feel better. No acute changes. OK to be discharged home.
[2019-12-21] MEDS: Insulin Lispro 100 Units/ML 3 ML Vial SUBCUT SCH (10:08)
[2019-12-21 13:16] VITALS: PULSE 75
== END 2019-12-21 10:20 | disposition home or self-care (01) ==
LOC: LL.ED 14:30 → SUPCPDRO 14:30 → LL.MS 16:25 → UNDOADMOB 16:25 → LL.MS 16:56
PROVIDERS: ADMIT Emergency Medicine; ATTEND Emergency Medicine
DX: S22.42XA Multiple fractures of ribs, left side, initial encounter for closed fracture (principal); M54.5 Low back pain; E78.00 Pure hypercholesterolemia, unspecified; I10 Essential (primary) hypertension; J45.909 Unspecified asthma, uncomplicated; E66.9 Obesity, unspecified; I25.810 Atherosclerosis of coronary artery bypass graft(s) without angina pectoris; E78.5 Hyperlipidemia, unspecified; K21.9 Gastro-esophageal reflux disease without esophagitis; G89.29 Other chronic pain; R29.6 Repeated falls; E11.42 Type 2 diabetes mellitus with diabetic polyneuropathy; Z88.5 Allergy status to narcotic agent; Z79.4 Long term (current) use of insulin; Z79.82 Long term (current) use of aspirin; Z79.899 Other long term (current) drug therapy; Z88.8 Allergy status to other drugs, medicaments and biological substances; Z68.35 Body mass index [BMI] 35.0-35.9, adult; W11.XXXA Fall on and from ladder, initial encounter
CPT/HCPCS: 36415; 71250; 72125; 73020; 80053; 82962; 85025; 85610; 85730; 93005; 96374; 96375; 96376; 97162; 97530; 99285; A9270; G0378; J1170; J1200; J1815; J3010; 93010; 99217; 99219

== ENCOUNTER 2020-12-05 14:48 | Emergency (ER) | payer MEDICARE, BC ==
[2020-12-05] MEDS ORDERED: Sodium Chloride 0.9% 10 ML Syringe FLUSH PRN (15:04)
[2020-12-05 15:23] LABS: CHLORIDE,CL 104 mmol/L (98-107); SODIUM,NA 137 mmol/L (136-145)
--- NOTE | 2020-12-05 15:37 | EDM.PDOC ---
ED HPI GENERAL MEDICAL PROBLEM - General Chief Complaint: Chest Pain Stated Complaint: chest pain Time Seen by Provider: 12/05/20 14:52 Source of Information: Reports: Patient History Limitations: Reports: No Limitations - History of Present Illness INITIAL COMMENTS - FREE TEXT/NARRATIVE: Patient sent here from [facility] due to chest pain complaint. Patient insists this is an old pain and has been a problem for a long time. Was sharper than usual today. Has a history of falls/syncope. No specific cause identified. Usually happens after he bends over. Is on quite a number of medications. No medication adjustment has been tried per patient to see if spells can be improved. He fell more than usual the past few weeks and is not sure if that might have caused the increased pain complaint. Pain is worse with palpation. No change with arm/shoulder movement or breathing/positional changes. Left pectoral area. No radiation to neck or arm/shoulder. No sweating/nausea with pain. Has had steroid treatment for the pain but no change. Denies head rotation causing dizzy/near syncopal spells. Has tried nitro in past for this pain complaint and no change noted. Denies any other changes from baseline other than some scuffs on his lower legs from the falls. 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, EKG Left Chest Pain Score (Numeric/FACES): 1 - Related Data Allergies Allergy/AdvReac Type Severity Reaction Status Date / Time alcohol Allergy Swelling Verified 12/05/20 14:49 morphine Allergy Swelling Verified 12/05/20 14:49 Slltlee-[id number]-Aaw Reductase Allergy Cough Verified 12/05/20 14:49 Inhibitor ticagrelor [From Brilinta] Allergy Difficulty Verified 12/05/20 14:49 Breathing Home Meds: Home Meds Aspirin 81 mg PO DAILY 02/14/16 [History] Gabapentin [Neurontin] 600 mg PO DAILY@02/14/16 [History] Insulin Degludec [Tresiba Flextouch U-200] 140 units SQ DAILY 02/14/16 [History] Isosorbide Mononitrate [Imdur] 30 mg PO DAILY@,02/14/16 [History] Liraglutide [Victoza] 1.8 mg SQ DAILY 02/14/16 [History] Lisinopril 1 tab PO DAILY 02/14/16 [History] Metoprolol Succinate [Toprol XL] 50 mg PO BEDTIME 02/14/16 [History] Non-Formulary Medication [NF Drug] 1 applic TOP BID PRN 02/14/16 [History] Pantoprazole [ProTONIX] 40 mg PO DAILY 02/14/16 [History] metFORMIN HCl [Metformin ER Osmotic] 1,000 mg PO BID 02/14/16 [History] Albuterol [Ventolin HFA] 1 - 2 puff INH QID PRN 11/18/16 [History] Fluticasone/Vilanterol [Breo Ellipta 100-25 MCG Inhalation Kit] 1 puff PO DAILY 11/18/16 [History] Prasugrel [Effient] 10 mg PO DAILY 11/18/16 [History] Insulin Aspart [Novolog Flexpen] 20 units SQ ,,11/19/16 [History] Acetaminophen [Tylenol Extra Strength] 1,000 mg PO Q4H PRN 12/19/19 [History] Allopurinol [Zyloprim] 300 mg PO DAILY 12/19/19 [History] Cyanocobalamin (Vitamin B-12) [Vitamin B-12] 1,000 mcg PO DAILY 12/19/19 [History] Diclofenac Sodium [Voltaren 1% Gel] 1 applic TOP BID PRN 12/19/19 [History] Fenofibrate 160 mg PO TUTHSA@20 12/19/19 [History] Fexofenadine [Maida] 180 mg PO DAILY 12/19/19 [History] Furosemide [Lasix] 10 mg PO DAILY 12/19/19 [History] Nitroglycerin 0.2 mg SL ASDIRECTED PRN 12/19/19 [History] Non-Formulary Medication [NF Drug] 1 applic TOP ASDIRECTED PRN 12/19/19 [History] Non-Formulary Medication [NF Drug] 1 each PO DAILY 12/19/19 [History] Non-Formulary Medication [NF Drug] 1 each TOP ASDIRECTED PRN 12/19/19 [History] Oxymetazoline [Afrin Original 0.05% Nasal [place]] 1 spray NASBOTH BID PRN 12/19/19 [History] Ranolazine [Ranexa] 500 mg PO DAILY@,12/19/19 [History] Rosuvastatin [Crestor] 2.5 mg PO MOWEFR@20 12/19/19 [History] Tamsulosin HCl [Flomax] 0.4 mg PO DAILY 12/19/19 [History] tiZANidine [Zanaflex] 2 - 4 mg PO Q8H PRN 12/19/19 [History] traMADol [Ultram] 50 mg PO Q8H PRN 12/19/19 [History] Past Medical History HEENT History: Reports: Cataract, Hard of Hearing, Impaired Vision Cardiovascular History: Reports: Arrhythmia, Bypass, CAD, High Cholesterol, Hypertension, Stents Respiratory History: Reports: Asthma, SOB Gastrointestinal History: Reports: GERD, Hemorrhoids Musculoskeletal History: Reports: Back Pain, Chronic Neurological History: Reports: Neuropathy, Diabetic Psychiatric History: Reports: None Endocrine/Metabolic History: Reports: Diabetes, Type II, Obesity/BMI 30+ - Infectious Disease History Infectious Disease History: Reports: Chicken Pox, Measles, Mumps - Past Surgical History Head Surgeries/Procedures: Reports: None HEENT Surgical History: Reports: Adenoidectomy, Cataract Surgery, Tonsillectomy Cardiovascular Surgical History: Reports: Coronary Artery Bypass, Coronary Artery Stent Respiratory Surgical History: Reports: None GI Surgical History: Reports: Colonoscopy, EGD Neurological Surgical History: Reports: None Social & Family History - Family History Cardiac: Reports: CAD, [place] - Caffeine Use Caffeine Use: Reports: Coffee ED ROS GENERAL - Review of Systems Review Of Systems: See Below Constitutional: Reports: No Symptoms HEENT: Reports: No Symptoms Respiratory: Reports: No Symptoms Cardiovascular: Reports: Chest Pain, Lightheadedness, Syncope (hx falls/near- syncope for years). Denies: Dyspnea on Exertion, Edema, Palpitations Endocrine: Reports: No Symptoms GI/Abdominal: Reports: No Symptoms : Reports: No Symptoms Musculoskeletal: Reports: Other (no acute changes from baseline) Skin: Reports: Other (skin tear left lower leg. abrasion on right. multiple bruises lower legs. ) Neurological: Reports: Dizziness, Other (no other acute changes). Denies: Confusion, Headache, Trouble Speaking, Change in Speech Psychiatric: Reports: No Symptoms ED EXAM, GENERAL - Physical Exam Exam: See Below Exam Limited By: No Limitations General Appearance: Alert, WD/WN, No Apparent Distress Eye Exam: Bilateral Eye: EOMI, PERRL Ears: Hearing Grossly Normal, Normal TMs Nose: Normal Inspection Throat/Mouth: Normal Lips, Normal Voice, No Airway Compromise Head: Atraumatic, Normocephalic Neck: Supple, Full Range of Motion Respiratory/Chest: No Respiratory Distress, Lungs Clear, Normal Breath Sounds, No Accessory Muscle Use, Other (Tender left pectoral area, most prominently just above left nipple. Reproduces pain complaint. ) Cardiovascular: Regular Rate, Rhythm, No Edema, No Murmur GI/Abdominal: Normal Bowel Sounds, Soft, Non-Tender (Male) Exam: Deferred Rectal (Males) Exam: Deferred Back Exam: No: CVA Tenderness (L), CVA Tenderness (R), Muscle Spasm, Paraspinal Tenderness, Vertebral Tenderness Extremities: Normal Capillary Refill, Other (equal tone/strength bilat). No: Moody's Sign Neurological: Alert, Oriented, Normal Cognition, No Motor/Sensory Deficits Psychiatric: Normal Affect, Normal Mood Skin Exam: Warm, Other (healing skin tear left anterior burgos. Mild abrasion right anterior burgos. Scattered discoloration noted bilateral lower legs. No swelling/drainage/signs of infection. ) #1 Interpretation EKG Date: 12/05/20 Time: 14:50 Rhythm: NSR Rate (Beats/Min): 83 [place]: Normal P-Wave: Present QRS: Normal ST-T: Other (nonspecific flattening noted ventricular leads. Similar pattern noted when compared to previous EKGs.) Course - Vital Signs Last Recorded V/S: Last Vital Signs Temp 36.5 C 12/05/20 14:48 Pulse 85 12/05/20 14:48 Resp 20 12/05/20 14:48 BP 122/60 12/05/20 14:48 Pulse Ox 93 L 12/05/20 14:48 - Orders/Labs/Meds Orders: Active Orders 24 hr Category Date Time Status Peripheral IV Care [RC] . DIRECTED Care 12/05/20 15:04 Active Chest 1V Frontal [CR] Stat Exams 12/05/20 15:03 Taken Sodium Chloride 0.9% [Saline Flush] Med 12/05/20 15:04 Active 10 ml FLUSH ASDIRECTED PRN Peripheral IV Insertion Adult [OM.PC] Routine Oth 12/05/20 15:04 Ordered Medication Orders Sodium Chloride (Sodium Chloride 0.9% 10 Ml Syringe) 10 ml FLUSH ASDIRECTED PRN PRN Reason: Keep Vein Open Labs: Laboratory Tests 12/05/20 12/05/20 Range/Units 14:45 14:45 WBC 9.1 (4.0-10.2) K/uL RBC 4.05 L (4.33-5.41) M/uL Hgb 12.5 L (13.1-16.8) g/dL Hct 36.8 L (39.0-49.0) % MCV 90.9 (84.0-98.0) fL MCH 30.9 (28.2-33.3) pg MCHC 34.0 (31.7-36.0) g/dL RDW 13.9 (11.2-14.1) % Plt Count 185 (150-350) K/uL Neut % (Auto) 63.4 (45.0-80.0) % Lymph % (Auto) 26.2 (10.0-50.0) % Bee % (Auto) 8.0 (2.0-14.0) % Eos % (Auto) 2.1 (0.0-5.0) % Baso % (Auto) 0.3 (0.0-2.0) % Neut # (Auto) 5.74 (1.40-7.00) K/uL Lymph # (Auto) 2.37 (0.50-3.50) K/uL Bee # (Auto) 0.72 (0.00-1.00) K/uL Eos # (Auto) 0.19 (0.00-0.50) K/uL Baso # (Auto) 0.03 (0.00-0.20) K/uL Sodium 137 (136-145) mmol/L Potassium 4.2 (3.5-5.1) mmol/L Chloride 104 (98-107) mmol/L Carbon Dioxide 28.0 (21.0-32.0) mmol/L Anion Gap 5.0 L (7-15) meq/L BUN 30 H (7-18) mg/dL Creatinine 1.50 H (0.51-1.17) mg/dL Est Cr Clr Drug Dosing TNP Estimated GFR (MDRD) 47 mL/min Glucose 312 H (70-99) mg/dL Calcium 8.8 (8.5-10.1) mg/dL Total Bilirubin 0.4 (0.2-1.0) mg/dL AST 24 (15-37) U/L ALT 30 (12-78) U/L Alkaline Phosphatase 101 (46-116) IU/L Troponin I High Sens 66 (<=76) ng/L Total Protein 6.7 (6.4-8.2) g/dL Albumin 3.5 (3.4-5.0) g/dL Meds: Medications Generic Name Dose Route Start Last Admin Trade Name Freq PRN Reason Stop Dose Admin Sodium Chloride 10 ml 12/05/20 15:04 Sodium Chloride 0.9% 10 Ml Syringe FLUSH ASDIRECTED PRN Keep Vein Open Discontinued Medications Generic Name Dose Route Start Last Admin Trade Name Freq PRN Reason Stop Dose Admin Bacitracin 1 dose 12/05/20 15:38 12/05/20 15:50 Bacitracin Oint 1 Gm U/D Packet TOP 12/05/20 15:39 1 dose ONETIME ONE Administration - Radiology Interpretation Free Text/Narrative:: Chest xray showed no acute changes. - Re-Assessments/Exams Free Text/Narrative Re-Assessment/Exam: Vital signs stable. O2 sats 97% on room air. Patient continued to insist that this was "old" chest pain that has been worked up before and failed some sort of steroid treatment. He denied any other new complaints other than his continued issues with dizziness and resulting falls/near-syncopal events. It could be that his chronic pain was exacerbated by one of these incidents. Patient denies any other injuries/hitting head other than bruises/abrasions lower legs. Declined head CT to r/o more unusual causes of dizziness. Did not want to stay in hospital and expressed wishes to be discharged home tea. Denied SOB/other acute changes as noted in HPI. He was agreeable with chest xray/EKG and basic labs. Troponin within normal range. No real acute changes on labs tests/xray/EKG. Patient wanted to be discharged when results reviewed with him. We did obtain a follow up appointment at [facility] Dec 09 for vaughn penaloza. Recommended that he discuss possible med changes to regimen that may help lesson his issues with suspected postural hypotension/dizziness/falls. Patient in agreement with plan. Departure - Departure Time of Disposition: 16:12 Disposition: Home, Self-Care 01 Condition: Good Clinical Impression: Atypical chest pain - Discharge Information *PRESCRIPTION DRUG MONITORING PROGRAM REVIEWED*: Not Applicable *COPY OF PRESCRIPTION DRUG MONITORING REPORT IN PATIENT JAGUAR: Not Applicable Referrals: Dorina Hooper PA-C [Primary Care Provider] - Forms: ED Department Discharge Additional Instructions: Take it easy for the next few days and see how your feel. If pain worsens/changes/is accompanied by other changes such as nausea/sweating/shortness of breath please return to ER for re-eval. Follow up with [facility] in [place] December 09 at 9:10am. Review with them the continued issues with dizziness/passing out after bending over and work on medication adjustment that might lessen these episodes. Sepsis Event Note (ED) - Evaluation Sepsis Screening Result: No Definite Risk - Focused Exam Vital Signs: Vital Signs Temp Pulse Resp BP Pulse Ox 12/05/20 14:48 36.5 C 85 20 122/60 93 L - My Orders Last 24 Hours: My Active Orders 12/05/20 15:03 Chest 1V Frontal [CR] Stat 12/05/20 15:04 Peripheral IV Care [RC] . DIRECTED Sodium Chloride 0.9% [Saline Flush] 10 ml FLUSH ASDIRECTED PRN Peripheral IV Insertion Adult [OM.PC] Routine - Assessment/Plan Last 24 Hours: My Active Orders 12/05/20 15:03 Chest 1V Frontal [CR] Stat 12/05/20 15:04 Peripheral IV Care [RC] . DIRECTED Sodium Chloride 0.9% [Saline Flush] 10 ml FLUSH ASDIRECTED PRN Peripheral IV Insertion Adult [OM.PC] Routine
[2020-12-05] MEDS ORDERED: Bacitracin Oint 1 GM U/D Packet TOP ONE (15:38)
[2020-12-05 17:56] VITALS: BP 112/63; PULSE 80
== END 2020-12-05 16:25 | disposition home or self-care (01) ==
LOC: LL.ED 14:48
DX: R07.89 Other chest pain (principal); I25.10 Atherosclerotic heart disease of native coronary artery without angina pectoris; E78.00 Pure hypercholesterolemia, unspecified; I10 Essential (primary) hypertension; E11.9 Type 2 diabetes mellitus without complications; E66.9 Obesity, unspecified; Z68.30 Body mass index [BMI] 30.0-30.9, adult; Z95.1 Presence of aortocoronary bypass graft; Z91.048 Other nonmedicinal substance allergy status; Z88.5 Allergy status to narcotic agent; Z88.8 Allergy status to other drugs, medicaments and biological substances; Z79.82 Long term (current) use of aspirin; Z79.4 Long term (current) use of insulin
CPT/HCPCS: 36415; 71045; 80053; 84484; 85025; 93005; 93010; 99284; 99285-25

== ENCOUNTER 2020-12-13 21:13 | Emergency (ER) | payer MEDICARE, BC ==
[2020-12-13] MEDS: Sodium Chloride 0.9% 1,000 ML IV SCH (21:20)
--- NOTE | 2020-12-13 21:35 | EDM.PDOC ---
ED HPI GENERAL MEDICAL PROBLEM - General Chief Complaint: Chest Pain Stated Complaint: hypotension, Diaphoresis Time Seen by Provider: 12/13/20 21:25 Source of Information: Reports: Patient, Family History Limitations: Reports: No Limitations - History of Present Illness INITIAL COMMENTS - FREE TEXT/NARRATIVE: Patient returns to ER for continued left chest pain complaint that is chronic. Seen for this last week in ER. Also has been having near syncopal events and falls more often recently, especially if he bends over. Followed up with Cardiology at [facility] Dec 09 and meds adjusted. Now feels more tired/more dizzy and BP noted to be lower. Has chronic SOB sensation and it is a bit worse. No fevers/chills/nausea/emesis/bowel changes. Denies UTI complaints. No new pain complaint. Significant CAD/stent history. Also appears to have some social issues at home. He recently from his and is living alone. Family member is checking in on him daily. Family member notes patient is not taking his medications on his own. She feels the former made him take his meds and kept patient on track and he is not doing well on his own. Family member feels patient will likely not take meds unless someone is there to tell him to take them. She also feels that the number of medications he is on is contributing to the hypotension/dizziness/passing out. Is supposed to have very limited daily exertion due to heart disease and was very active today moving stuff out of a house trailer. Chest Pain Score (Numeric/FACES): 3 - Related Data Allergies Allergy/AdvReac Type Severity Reaction Status Date / Time alcohol Allergy Swelling Verified 12/13/20 22:55 morphine Allergy Swelling Verified 12/13/20 22:55 [id number] Reductase Allergy Cough Verified 12/13/20 22:55 Inhibitor ticagrelor [From Brilinta] Allergy Difficulty Verified 12/13/20 22:55 Breathing Home Meds: Home Meds Aspirin 81 mg PO DAILY 02/14/16 [History] Gabapentin [Neurontin] 600 mg PO DAILY@02/14/16 [History] Insulin Degludec [Tresiba Flextouch U-200] 140 units SQ DAILY 02/14/16 [History] Isosorbide Mononitrate [Imdur] 60 mg PO DAILY@02/14/16 [History] Liraglutide [Victoza] 1.8 mg SQ DAILY 02/14/16 [History] Metoprolol Succinate [Toprol XL] 50 mg PO BEDTIME 02/14/16 [History] Pantoprazole [ProTONIX] 40 mg PO DAILY 02/14/16 [History] Prasugrel [Effient] 10 mg PO DAILY 11/18/16 [History] Insulin Aspart [Novolog Flexpen] 20 units SQ ,,11/19/16 [History] Allopurinol [Zyloprim] 300 mg PO DAILY 12/19/19 [History] Cyanocobalamin (Vitamin B-12) [Vitamin B-12] 1,000 mcg PO DAILY 12/19/19 [History] Diclofenac Sodium [Voltaren 1% Gel] 1 applic TOP BID PRN 12/19/19 [History] Fexofenadine [Maida] 180 mg PO DAILY 12/19/19 [History] Furosemide [Lasix] 20 mg PO DAILY 12/19/19 [History] Non-Formulary Medication [NF Drug] 1 each PO DAILY 12/19/19 [History] Ranolazine [Ranexa] 500 mg PO DAILY@12/19/19 [History] Tamsulosin HCl [Flomax] 0.4 mg PO DAILY 12/19/19 [History] tiZANidine [Zanaflex] 2 - 4 mg PO Q8H PRN 12/19/19 [History] Past Medical History HEENT History: Reports: Cataract, Hard of Hearing, Impaired Vision Cardiovascular History: Reports: Arrhythmia, Bypass, CAD, High Cholesterol, Hypertension, Stents Respiratory History: Reports: Asthma, SOB Gastrointestinal History: Reports: GERD, Hemorrhoids Musculoskeletal History: Reports: Back Pain, Chronic Neurological History: Reports: Neuropathy, Diabetic Psychiatric History: Reports: None Endocrine/Metabolic History: Reports: Diabetes, Type II, Obesity/BMI 30+ - Infectious Disease History Infectious Disease History: Reports: Chicken Pox, Measles, Mumps - Past Surgical History Head Surgeries/Procedures: Reports: None HEENT Surgical History: Reports: Adenoidectomy, Cataract Surgery, Tonsillectomy Cardiovascular Surgical History: Reports: Coronary Artery Bypass, Coronary Artery Stent Respiratory Surgical History: Reports: None GI Surgical History: Reports: Colonoscopy, EGD Neurological Surgical History: Reports: None Social & Family History - Family History Cardiac: Reports: CAD, [place] - Caffeine Use Caffeine Use: Reports: Coffee ED ROS GENERAL - Review of Systems Review Of Systems: See Below Constitutional: Reports: Fatigue, Diaphoresis. Denies: Fever, Chills, Decreased Appetite, Weight Loss, Weight Gain HEENT: Reports: No Symptoms Respiratory: Reports: Shortness of Breath (chronic). Denies: Wheezing, Pleuritic Chest Pain, Cough, Sputum, Hemoptysis Cardiovascular: Reports: Chest Pain (chronic/left side), Blood Pressure Problem (low), Dyspnea on Exertion (chronic), Edema, Lightheadedness, Syncope. Denies: Palpitations GI/Abdominal: Reports: No Symptoms : Reports: No Symptoms Musculoskeletal: Reports: Other (no acute changes from baseline) Neurological: Reports: Other (bruising/healing wounds lower legs from falls) Psychiatric: Reports: No Symptoms Hematologic/Lymphatic: Reports: No Symptoms Immunologic: Reports: No Symptoms ED EXAM, GENERAL - Physical Exam Exam: See Below Exam Limited By: No Limitations General Appearance: Alert, No Apparent Distress, Obese Eye Exam: Bilateral Eye: EOMI, PERRL Ears: Normal External Exam, Hearing Loss Nose: No: Nasal Deformity, Nasal Swelling, Nasal Drainage Throat/Mouth: Normal Lips, Normal Voice, No Airway Compromise Head: Atraumatic, Normocephalic Neck: Supple, Non-Tender, Full Range of Motion Respiratory/Chest: No Respiratory Distress, Lungs Clear, No Accessory Muscle Use, Chest Non-Tender, Decreased Breath Sounds (throughout) Cardiovascular: Regular Rate, Rhythm, No Murmur GI/Abdominal: Soft, Non-Tender, Other (rounded abdomen) (Male) Exam: Deferred Rectal (Males) Exam: Deferred Back Exam: No: Muscle Spasm, Paraspinal Tenderness, Vertebral Tenderness Extremities: Pedal Edema. No: Moody's Sign, Increased Warmth Neurological: Alert, Oriented, No Motor/Sensory Deficits Psychiatric: Flat Affect Skin Exam: Warm, Dry, Other (scattered bruising lower legs, healing larger wound left anterior leg (improved from last week)) #1 Interpretation EKG Date: 12/13/20 Time: 21:21 Rhythm: NSR Rate (Beats/Min): 75 [place]: Normal P-Wave: Present QRS: Normal ST-T: Normal QT: Normal Comparison: No Change (no significant change from 12/05/20) Course - Vital Signs Last Recorded V/S: Last Vital Signs Temp 36.7 C 12/13/20 23:05 Pulse 72 12/13/20 23:35 Resp 16 12/13/20 23:35 BP 126/58 L 12/13/20 23:35 Pulse Ox 96 12/13/20 23:35 - Orders/Labs/Meds Orders: Active Orders 24 hr Category Date Time Status EKG Documentation Completion [RC] ASDIRECTED Care 12/13/20 21:38 Active Insert Mcknight Catheter [Insert Urinary Catheter] [OM.PC] Care 12/13/20 22:20 Ordered Q24H Urinary Catheter Assessment [RC] ASDIRECTED Care 12/13/20 22:57 Active Chest 1V Frontal [CR] Stat Exams 12/13/20 21:45 Taken CULTURE BLOOD [BC] Stat Lab 12/13/20 21:05 Received CULTURE BLOOD [BC] Stat Lab 12/13/20 21:10 Received Sodium Chloride 0.9% [Normal Saline] 1,000 ml Med 12/13/20 23:36 Active IV .BOLUS Sodium Chloride 0.9% [Normal Saline] 1,000 ml Med 12/13/20 21:00 Active IV ASDIRECTED Sodium Chloride 0.9% [Saline Flush] Med 12/13/20 21:37 Active 10 ml FLUSH ASDIRECTED PRN Blood Culture x2 Reflex Set [OM.PC] Stat Oth 12/13/20 21:38 Ordered Saline Lock Insert [OM.PC] Stat Oth 12/13/20 21:37 Ordered EKG 12 Lead [EK] Stat Ther 12/13/20 21:37 Ordered Medication Orders Sodium Chloride (Normal Saline) 1,000 mls @ 500 mls/hr IV ASDIRECTED [facility] Last Admin: 12/13/20 21:20 Dose: 500 mls/hr Documented by: COXTAM Sodium Chloride (Normal Saline) 1,000 mls @ 150 mls/hr IV .BOLUS ONE Stop: 12/14/20 06:15 Last Admin: 12/14/20 00:10 Dose: 150 mls/hr Documented by: COXTAM Sodium Chloride (Sodium Chloride 0.9% 10 Ml Syringe) 10 ml FLUSH ASDIRECTED PRN PRN Reason: Keep Vein Open Labs: Laboratory Tests 12/13/20 12/13/20 12/13/20 Range/Units 20:15 21:05 21:05 WBC 14.1 H (4.0-10.2) K/uL RBC 3.91 L (4.33-5.41) M/uL Hgb 12.1 L (13.1-16.8) g/dL Hct 36.2 L (39.0-49.0) % MCV 92.6 (84.0-98.0) fL MCH 30.9 (28.2-33.3) pg MCHC 33.4 (31.7-36.0) g/dL RDW 14.1 (11.2-14.1) % Plt Count 218 (150-350) K/uL Neut % (Auto) 66.5 (45.0-80.0) % Lymph % (Auto) 24.6 (10.0-50.0) % [place] % (Auto) 6.5 (2.0-14.0) % Eos % (Auto) 2.1 (0.0-5.0) % Baso % (Auto) 0.3 (0.0-2.0) % Neut # (Auto) 9.35 H (1.40-7.00) K/uL Lymph # (Auto) 3.47 (0.50-3.50) K/uL [place] # (Auto) 0.92 (0.00-1.00) K/uL Eos # (Auto) 0.30 (0.00-0.50) K/uL Baso # (Auto) 0.04 (0.00-0.20) K/uL D-Dimer, Quantitative 469 H (0-400) ng/mL Sodium (136-145) mmol/L Potassium (3.5-5.1) mmol/L Chloride (98-107) mmol/L Carbon Dioxide (21.0-32.0) mmol/L Anion Gap (7-15) meq/L BUN (7-18) mg/dL Creatinine (0.51-1.17) mg/dL Est Cr Clr Drug Dosing Estimated GFR (MDRD) mL/min Glucose (70-99) mg/dL Lactic Acid 1.1 (0.4-2.0) mmol/L Calcium (8.5-10.1) mg/dL Magnesium (1.8-2.4) mg/dL Total Bilirubin (0.2-1.0) mg/dL AST (15-37) U/L ALT (12-78) U/L Alkaline Phosphatase (46-116) IU/L Troponin I High Sens (<=76) ng/L NT-Pro-B Natriuret Pep (0-125) pg/mL Total Protein (6.4-8.2) g/dL Albumin (3.4-5.0) g/dL Specimen Type Urine Color Urine Appearance Urine pH (5.0-9.0) Ur Specific [place] (1.005-1.030) Urine Protein (NEGATIVE) mg/dL Urine Glucose (UA) (NEGATIVE) mg/dL Urine Ketones (NEGATIVE) mg/dL Urine Occult Blood (NEGATIVE) Urine Nitrite (NEGATIVE) Urine Bilirubin (NEGATIVE) Urine Urobilinogen (0.2-1.0) E.U./dL Ur Leukocyte Esterase (NEGATIVE) Urine RBC /HPF Urine WBC /HPF Ur Epithelial Cells /LPF Urine Bacteria (NONE TO FEW) /HPF 12/13/20 12/13/20 Range/Units 21:05 22:21 WBC (4.0-10.2) K/uL RBC (4.33-5.41) M/uL Hgb (13.1-16.8) g/dL Hct (39.0-49.0) % MCV (84.0-98.0) fL MCH (28.2-33.3) pg MCHC (31.7-36.0) g/dL RDW (11.2-14.1) % Plt Count (150-350) K/uL Neut % (Auto) (45.0-80.0) % Lymph % (Auto) (10.0-50.0) % [place] % (Auto) (2.0-14.0) % Eos % (Auto) (0.0-5.0) % Baso % (Auto) (0.0-2.0) % Neut # (Auto) (1.40-7.00) K/uL Lymph # (Auto) (0.50-3.50) K/uL [place] # (Auto) (0.00-1.00) K/uL Eos # (Auto) (0.00-0.50) K/uL Baso # (Auto) (0.00-0.20) K/uL D-Dimer, Quantitative (0-400) ng/mL Sodium 140 (136-145) mmol/L Potassium 4.8 (3.5-5.1) mmol/L Chloride 104 (98-107) mmol/L Carbon Dioxide 27.8 (21.0-32.0) mmol/L Anion Gap 8.2 (7-15) meq/L BUN 32 H (7-18) mg/dL Creatinine 2.60 H (0.51-1.17) mg/dL Est Cr Clr Drug Dosing TNP Estimated GFR (MDRD) 25 mL/min Glucose 185 H (70-99) mg/dL Lactic Acid (0.4-2.0) mmol/L Calcium 9.0 (8.5-10.1) mg/dL Magnesium 1.7 L (1.8-2.4) mg/dL Total Bilirubin 0.3 (0.2-1.0) mg/dL AST 29 (15-37) U/L ALT 32 (12-78) U/L Alkaline Phosphatase 101 (46-116) IU/L Troponin I High Sens 51 (<=76) ng/L NT-Pro-B Natriuret Pep 317 H (0-125) pg/mL Total Protein 6.9 (6.4-8.2) g/dL Albumin 3.6 (3.4-5.0) g/dL Specimen Type Urinvoid Urine Color Yellow Urine Appearance Clear Urine pH 5.0 (5.0-9.0) Ur Specific [place] 1.020 (1.005-1.030) Urine Protein Negative (NEGATIVE) mg/dL Urine Glucose (UA) 100 H (NEGATIVE) mg/dL Urine Ketones Negative (NEGATIVE) mg/dL Urine Occult Blood Negative (NEGATIVE) Urine Nitrite Negative (NEGATIVE) Urine Bilirubin Negative (NEGATIVE) Urine Urobilinogen 0.2 (0.2-1.0) E.U./dL Ur Leukocyte Esterase Trace H (NEGATIVE) Urine RBC 0-5 /HPF Urine WBC 5-10 H /HPF Ur Epithelial Cells Few /LPF Urine Bacteria Rare (NONE TO FEW) /HPF Meds: Medications Generic Name Dose Route Start Last Admin Trade Name Freq PRN Reason Stop Dose Admin Sodium Chloride 1,000 mls @ 500 mls/hr 12/13/20 21:00 12/13/20 21:20 Normal Saline IV 500 mls/hr ASDIRECTED CHRIS Administration Sodium Chloride 1,000 mls @ 150 mls/hr 12/13/20 23:36 12/14/20 00:10 Normal Saline IV 12/14/20 06:15 150 mls/hr .BOLUS ONE Administration Sodium Chloride 10 ml 12/13/20 21:37 Sodium Chloride 0.9% 10 Ml Syringe FLUSH ASDIRECTED PRN Keep Vein Open Discontinued Medications Generic Name Dose Route Start Last Admin Trade Name Jayla PRN Reason Stop Dose Admin Lidocaine HCl Confirm 12/13/20 22:11 12/13/20 22:20 Lidocaine 2% Hcl 11 Ml Jelly Filled Syringe Administered 12/13/20 22:12 11 ml Dose Administration 11 ml .[facility] Re-Assessments/Exams Free Text/Narrative Re-Assessment/Exam: 12/13/20 22:04 Daughter notes that Cardiology told patient to stop Metformin and hold Lisinopril due to increased edema and worsening renal function. Also increased Lasix to 40mg daily for one week then go to 20mg daily. Isosorbide changed from BID to single nightly dose of 60mg. This was on the 2nd, 4 days ago. Patient noted to be dizzy whenever he sat up. BP remained in 90s/60s. BP improved a bit to 111/57 at 2200 s/p IV fluids and patient felt a little subjectively better. WBC elevated at 14.1. No complaints of fever/infection. Blood cultures performed. UA still pending. hgb 12.1 DDimer elevated at 469 BUN 32 and Cr 2.6 which is higher than when he was seen December 05. Glucose 185. Mag 1.7 BNP minimally elevated at 317. No obvious acute changes/new infiltrate on chest film. EKG unchanged/no signs acute ischemia. Suspect dizziness and malaise could be related to current medications and resulting hypotensive effects. Cannot rule out possible PE contributing to picture with elevated ddimer. Again, patient is chronically SOB and has chronic left sided chest pain but both were worse this evening. Hypotension could also be factor with the increased SOB sensation. Waiting at this time for UA results. Will contact [facility] once available and look to get patient on transfer wait list. He will benefit from Cardiology being available/can reassess medications and also be able to have V/Q scan to formally rule out PE. Unable to receive contrast CT due to renal impairment. Patient had mcknight placed for UA. Approx 1200cc urine returned. UA did not show evidence of UTI 12/13/20 23:10 Call placed to [facility]. Waiting for provider call back. 12/13/20 23:28 Spoke to concerning patient. She feels that dehydration from increased lasix may be part of problem. She did accept patient for transfer to their facility for further evaluation. It was noted by her that patient's EF is 60% and recent cardiac echo was good. Departure - Departure Time of Disposition: 00:29 Disposition: DC/Tfer to Acute Hospital 02 Condition: Good Clinical Impression: Urinary retention, Impaired renal function Hypotension Qualifiers: Hypotension type: unspecified hypotension type Qualified Code(s): I95.9 - Hypotension, unspecified - Discharge Information *PRESCRIPTION DRUG MONITORING PROGRAM REVIEWED*: Not Applicable *COPY OF PRESCRIPTION DRUG MONITORING REPORT IN PATIENT JAGUAR: Not Applicable Referrals: PCP,Not In Area [Ordering Only Provider] - Forms: ED Department Discharge Sepsis Event Note (ED) - Focused Exam Vital Signs: Vital Signs Temp Pulse Resp BP Pulse Ox 12/13/20 23:35 72 16 126/58 L 96 12/13/20 23:05 36.7 C 72 16 117/50 L 94 L 12/13/20 22:35 73 16 119/55 L 93 L 12/13/20 22:05 76 18 111/57 L 94 L 12/13/20 21:38 36.7 C 77 18 94/54 L 94 L 12/13/20 21:35 76 18 92/52 L 93 L 12/13/20 21:20 36.6 C 78 18 98/52 L 94 L - My Orders Last 24 Hours: My Active Orders 12/13/20 21:00 Sodium Chloride 0.9% [Normal Saline] 1,000 ml IV ASDIRECTED 12/13/20 21:05 CULTURE BLOOD [BC] Stat 12/13/20 21:10 CULTURE BLOOD [BC] Stat 12/13/20 21:37 Sodium Chloride 0.9% [Saline Flush] 10 ml FLUSH ASDIRECTED PRN Saline Lock Insert [OM.PC] Stat EKG 12 Lead [EK] Stat 12/13/20 21:38 EKG Documentation Completion [RC] ASDIRECTED Blood Culture x2 Reflex Set [OM.PC] Stat 12/13/20 21:45 Chest 1V Frontal [CR] Stat 12/13/20 22:20 Insert Mcknight Catheter [Insert Urinary Catheter] [OM.PC] Q24H 12/13/20 22:57 Urinary Catheter Assessment [RC] ASDIRECTED 12/13/20 23:36 Sodium Chloride 0.9% [Normal Saline] 1,000 ml IV .BOLUS - Assessment/Plan Last 24 Hours: My Active Orders 12/13/20 21:00 Sodium Chloride 0.9% [Normal Saline] 1,000 ml IV ASDIRECTED 12/13/20 21:05 CULTURE BLOOD [BC] Stat 12/13/20 21:10 CULTURE BLOOD [BC] Stat 12/13/20 21:37 Sodium Chloride 0.9% [Saline Flush] 10 ml FLUSH ASDIRECTED PRN Saline Lock Insert [OM.PC] Stat EKG 12 Lead [EK] Stat 12/13/20 21:38 EKG Documentation Completion [RC] ASDIRECTED Blood Culture x2 Reflex Set [OM.PC] Stat 12/13/20 21:45 Chest 1V Frontal [CR] Stat 12/13/20 22:20 Insert Mcknight Catheter [Insert Urinary Catheter] [OM.PC] Q24H 12/13/20 22:57 Urinary Catheter Assessment [RC] ASDIRECTED 12/13/20 23:36 Sodium Chloride 0.9% [Normal Saline] 1,000 ml IV .BOLUS
[2020-12-13] MEDS ORDERED: Sodium Chloride 0.9% 10 ML Syringe FLUSH PRN (21:37)
[2020-12-13 21:42] LABS: ANION GAP 8.2 meq/L (7-15); CHLORIDE,CL 104 mmol/L (98-107); SODIUM,NA 140 mmol/L (136-145)
[2020-12-13] MEDS: Lidocaine 2% HCl 11 ML Jelly Filled Syringe ONE (22:20)
[2020-12-14 00:05] VITALS: PULSE 72
[2020-12-14 00:06] VITALS: BP 126/58
[2020-12-14] MEDS: Sodium Chloride 0.9% 1,000 ML IV ONE (00:10)
== END 2020-12-14 00:53 ==
LOC: LL.ED 21:13
DX: I95.9 Hypotension, unspecified (principal); R33.9 Retention of urine, unspecified; N28.9 Disorder of kidney and ureter, unspecified; I25.810 Atherosclerosis of coronary artery bypass graft(s) without angina pectoris; I10 Essential (primary) hypertension; J45.909 Unspecified asthma, uncomplicated; K21.9 Gastro-esophageal reflux disease without esophagitis; E11.40 Type 2 diabetes mellitus with diabetic neuropathy, unspecified; E66.9 Obesity, unspecified; Z68.35 Body mass index [BMI] 35.0-35.9, adult; Z88.8 Allergy status to other drugs, medicaments and biological substances; Z88.5 Allergy status to narcotic agent; Z88.6 Allergy status to analgesic agent; Z79.82 Long term (current) use of aspirin; Z79.4 Long term (current) use of insulin; Z79.899 Other long term (current) drug therapy; R06.02 Shortness of breath
CPT/HCPCS: 36415; 51702; 71045; 80053; 81001; 83605; 83735; 83880; 84484; 85025; 85379; 87040; 93010; 99284; 99285-25; A9270-GY; J7030

== ENCOUNTER 2021-05-06 01:34 | Observation (INO) | payer MEDICARE, BC ==
[2021-05-06 02:34] LABS: ANION GAP 11.4 meq/L (7-15); CHLORIDE,CL 101 mmol/L (98-107); SODIUM,NA 137 mmol/L (136-145)
[2021-05-06] MEDS ORDERED: Aspirin 81 MG Tab.Chew PO ONE (02:41)
[2021-05-06] MEDS ORDERED: Lactated Ringers 1,000 ML IV SCH (02:45)
--- NOTE | 2021-05-06 03:22 | EDM.PDOC ---
ED HPI GENERAL MEDICAL PROBLEM - General Chief Complaint: General Stated Complaint: not feeling well Time Seen by Provider: 05/06/21 01:45 Source of Information: Reports: Patient, Family History Limitations: Reports: No Limitations - History of Present Illness INITIAL COMMENTS - FREE TEXT/NARRATIVE: Pt. presents to ER with numerous complaints, primarily of vertigo and difficulty with ambulation as well as lightheadedness. Pt. also states that he is experiencing some intermittent chest pressure. Pt. states that he greatly exerted himself, stating that he "shoveled snow all day". He states that he also used a snowblower for some time earlier in the day, exposing him to carbon monoxide, but it was in a ventilated area. Pt. states that he has been quite unsteady on his feet since yesterday afternoon. He was brought to her via private vehicle, and required significant assistance getting him out of the car. Pt. states that he has had a significant, non-productive cough for the past several weeks. He denies any fever or chills. He states that he is always short of breath, but states that it is worse than normal. Pt. denies any jaw, arm, neck or back pain. No nausea, vomiting, or diarrhea. Pt. has an extensive cardiac history and states that he has 17 stents. He has had a 3 vessel CABG. He has been admitted locally and at [facility] in the recent past with NSTEMI and unstable angina. he has a history of class 3 diastolic HF. Pt. underwent PET stress test in Oct. which was negative for significant ischemic pattern at that time. There were multiple areas of po tential microvascular dysfunction and evidence of decreased global coronary perfusion consistent with pervious CAD. EF approx. 53% at that time. Pt. also has a history of Pt. underwent brachytherapy at [facility] previous but is not interested in continuing this, according to pervious cardiology note. He has been non- compliant with his medications in the past, and has poorly controlled type II DM. Onset Date: 05/05/21 Location: Reports: Generalized - Related Data Allergies Allergy/AdvReac Type Severity Reaction Status Date / Time alcohol Allergy Swelling Verified 05/06/21 01:36 morphine Allergy Swelling Verified 05/06/21 01:36 Smijhoy-[id number]-[id number] Reductase Allergy Cough Verified 05/06/21 01:36 Inhibitor [Evogvzg-Kln-Nou Reductase Inhibitor] ticagrelor [From Brilinta] Allergy Difficulty Verified 05/06/21 01:36 Breathing Home Meds: Home Meds Aspirin 81 mg PO DAILY 02/14/16 [History] Insulin Degludec [Tresiba Flextouch U-200] 140 units SQ DAILY 02/14/16 [History] Isosorbide Mononitrate [Imdur] 60 mg PO BEDTIME 02/14/16 [History] Liraglutide [Victoza] 1.8 mg SQ DAILY 02/14/16 [History] Metoprolol Succinate [Toprol XL] 50 mg PO DAILY 02/14/16 [History] Pantoprazole [ProTONIX] 40 mg PO DAILY 02/14/16 [History] Prasugrel [Effient] 10 mg PO DAILY 11/18/16 [History] Insulin Aspart [Novolog Flexpen] 5 units SQ TIDMEALS 11/19/16 [History] Allopurinol [Zyloprim] 300 mg PO DAILY 12/19/19 [History] Cyanocobalamin (Vitamin B-12) [Vitamin B-12] 1,000 mcg PO DAILY 12/19/19 [History] Diclofenac Sodium [Voltaren 1% Gel] 1 applic TOP BID PRN 12/19/19 [History] Furosemide [Lasix] 20 mg PO DAILY 12/19/19 [History] Non-Formulary Medication [NF Drug] 1 cap PO BID 12/19/19 [History] Ranolazine [Ranexa] 500 mg PO DAILY@12/19/19 [History] Tamsulosin HCl [Flomax] 0.4 mg PO DAILY 12/19/19 [History] tiZANidine [Zanaflex] 1 - 2 tab PO Q8H PRN 12/19/19 [History] Acetaminophen 500 mg PO ASDIRECTED PRN 05/06/21 [History] Albuterol [Ventolin HFA] 2 puff INH Q4H PRN 05/06/21 [History] Alpha Lipoic Acid 200 mg PO DAILY 05/06/21 [History] Ascorbic Acid [Vitamin C] 100 mg PO DAILY 05/06/21 [History] Fenofibrate 160 mg PO ASDIRECTED 05/06/21 [History] Fluticasone/Vilanterol [Breo Ellipta 100-25 MCG Inhalation Kit] 25 mcg INH DAILY 05/06/21 [History] Gabapentin [Neurontin] 200 mg PO BEDTIME 05/06/21 [History] Nitroglycerin 0.4 mg SL ASDIRECTED PRN 05/06/21 [History] lidocaine HCL [Xylocaine] 10 ml PO ASDIRECTED PRN 05/06/21 [History] Past Medical History HEENT History: Reports: Cataract, Hard of Hearing, Impaired Vision Cardiovascular History: Reports: Arrhythmia, Bypass, CAD, High Cholesterol, Hypertension, Stents Respiratory History: Reports: Asthma, SOB Gastrointestinal History: Reports: GERD, Hemorrhoids Musculoskeletal History: Reports: Back Pain, Chronic Neurological History: Reports: Neuropathy, Diabetic Psychiatric History: Reports: None Endocrine/Metabolic History: Reports: Diabetes, Type II, Obesity/BMI 30+ - Infectious Disease History Infectious Disease History: Reports: Chicken Pox, Measles, Mumps - Past Surgical History Head Surgeries/Procedures: Reports: None HEENT Surgical History: Reports: Adenoidectomy, Cataract Surgery, Tonsillectomy Cardiovascular Surgical History: Reports: Coronary Artery Bypass, Coronary Artery Stent Respiratory Surgical History: Reports: None GI Surgical History: Reports: Colonoscopy, EGD Endocrine Surgical History: Reports: None Neurological Surgical History: Reports: None Musculoskeletal Surgical History: Reports: None Social & Family History - Family History Cardiac: Reports: CAD, MA - Caffeine Use Caffeine Use: Reports: Coffee ED ROS GENERAL - Review of Systems Review Of Systems: See Below Constitutional: Denies: Fever, Chills, Malaise, Weakness, Fatigue HEENT: Reports: No Symptoms Respiratory: Reports: Shortness of Breath, Pleuritic Chest Pain, Cough Cardiovascular: Reports: Chest Pain (Chest pressure), Dyspnea on Exertion. Denies: Edema, Orthopnea, Palpitations, PND, Syncope Endocrine: Reports: No Symptoms GI/Abdominal: Reports: No Symptoms : Reports: No Symptoms Musculoskeletal: Reports: No Symptoms Skin: Reports: No Symptoms Neurological: Reports: No Symptoms Psychiatric: Reports: No Symptoms Hematologic/Lymphatic: Reports: No Symptoms Immunologic: Reports: No Symptoms ED EXAM, GENERAL - Physical Exam Exam: See Below Exam Limited By: No Limitations General Appearance: Alert, WD/WN, No Apparent Distress Throat/Mouth: Normal Inspection, Normal Lips, Normal Teeth, Normal Gums, Normal Oropharynx, Normal Voice, No Airway Compromise Head: Atraumatic, Normocephalic Neck: Normal Inspection, Supple, Non-Tender, Full Range of Motion Respiratory/Chest: No Respiratory Distress, No Accessory Muscle Use, Chest Non- Tender, Decreased Breath Sounds Cardiovascular: Normal Peripheral Pulses, Regular Rate, Rhythm, No Edema, No JVD, No Murmur Peripheral Pulses: 4+: Radial (R) GI/Abdominal: Soft, Non-Tender, No Distention, No Mass (Male) Exam: Deferred Rectal (Males) Exam: Deferred Back Exam: Normal Inspection, Full Range of Motion Extremities: Normal Inspection, Normal Range of Motion, Non-Tender, No Pedal Edema, Normal Capillary Refill Neurological: Alert, Oriented, CN II-XII Intact, Normal Cognition, Normal Gait, Normal Reflexes, No Motor/Sensory Deficits Psychiatric: Normal Affect, Normal Mood Skin Exam: Warm, Dry, Intact, No Rash, Pallor Lymphatic: No Adenopathy #1 Interpretation Rhythm: NSR Comparison: No Change Course - Orders/Labs/Meds Orders: Active Orders 24 hr Category Date Time Status EKG Documentation Completion [RC] ASDIRECTED Care 05/06/21 01:58 Active Peripheral IV Care [RC] . DIRECTED Care 05/06/21 01:58 Active Chest 1V Frontal [CR] Stat Exams 05/06/21 02:00 Ordered Head wo Cont [CT] Stat Exams 05/06/21 01:59 Taken CARBOXYHEMOGLOBIN [REF] Stat Lab 05/06/21 02:21 Ordered Lactated Ringers [Ringers, Lactated] 1,000 ml Med 05/06/21 02:45 Active IV ASDIRECTED Sodium Chloride 0.9% [Saline Flush] Med 05/06/21 01:57 Active 10 ml FLUSH ASDIRECTED PRN Peripheral IV Insertion Adult [OM.PC] Routine Oth 05/06/21 01:57 Ordered Medication Orders Ceftriaxone Sodium (Ceftriaxone 1 Gm Vial) 1 gm IVPUSH Q24H CHRIS Doxycycline Monohydrate (Doxycycline Monohydrate 100 Mg Cap) 100 mg PO BID CHRIS Lactated Ringer's (Ringers, Lactated) 1,000 mls @ 500 mls/hr IV ASDIRECTED CHRIS Last Admin: 05/06/21 02:37 Dose: 500 mls/hr Documented by: COXTAM Sodium Chloride (Sodium Chloride 0.9% 10 Ml Syringe) 10 ml FLUSH ASDIRECTED PRN PRN Reason: Keep Vein Open Labs: Laboratory Tests 05/06/21 05/06/21 05/06/21 Range/Units 01:57 01:57 01:57 WBC 9.2 (4.0-10.2) K/uL RBC 4.15 L (4.33-5.41) M/uL Hgb 12.2 L (13.1-16.8) g/dL Hct 36.6 L (39.0-49.0) % MCV 88.2 D (84.0-98.0) fL MCH 29.4 (28.2-33.3) pg MCHC 33.3 (31.7-36.0) g/dL RDW 13.7 (11.2-14.1) % Plt Count 160 (150-350) K/uL Neut % (Auto) 70.7 (45.0-80.0) % Lymph % (Auto) 17.8 (10.0-50.0) % [place] % (Auto) 9.5 (2.0-14.0) % Eos % (Auto) 1.8 (0.0-5.0) % Baso % (Auto) 0.2 (0.0-2.0) % Neut # (Auto) 6.51 (1.40-7.00) K/uL Lymph # (Auto) 1.64 (0.50-3.50) K/uL [place] # (Auto) 0.88 (0.00-1.00) K/uL Eos # (Auto) 0.17 (0.00-0.50) K/uL Baso # (Auto) 0.02 (0.00-0.20) K/uL PT 10.0 (9.6-11.3) SEC INR 1.0 APTT (23.6-29.8) SEC Sodium 137 (136-145) mmol/L Potassium 4.1 (3.5-5.1) mmol/L Chloride 101 (98-107) mmol/L Carbon Dioxide 24.6 (21.0-32.0) mmol/L Anion Gap 11.4 (7-15) meq/L BUN 31 H (7-18) mg/dL Creatinine 1.84 H (0.51-1.17) mg/dL Est Cr Clr Drug Dosing TNP Estimated GFR (MDRD) 37 mL/min Glucose 305 H (70-99) mg/dL Calcium 8.9 (8.5-10.1) mg/dL Phosphorus 2.6 (2.6-4.7) mg/dL Magnesium 1.8 (1.8-2.4) mg/dL Total Bilirubin 0.3 (0.2-1.0) mg/dL AST 15 (15-37) U/L ALT 18 (12-78) U/L Alkaline Phosphatase 116 (46-116) IU/L Troponin I High Sens 93 H* (<=76) ng/L C-Reactive Protein 5.1 H (<=0.9) mg/dL NT-Pro-B Natriuret Pep 534 H (0-125) pg/mL Total Protein 6.7 (6.4-8.2) g/dL Albumin 3.4 (3.4-5.0) g/dL TSH, Ultra Sensitive 1.216 (0.358-3.740) mIU/mL 05/06/21 Range/Units 01:57 WBC (4.0-10.2) K/uL RBC (4.33-5.41) M/uL Hgb (13.1-16.8) g/dL Hct (39.0-49.0) % MCV (84.0-98.0) fL MCH (28.2-33.3) pg MCHC (31.7-36.0) g/dL RDW (11.2-14.1) % Plt Count (150-350) K/uL Neut % (Auto) (45.0-80.0) % Lymph % (Auto) (10.0-50.0) % [place] % (Auto) (2.0-14.0) % Eos % (Auto) (0.0-5.0) % Baso % (Auto) (0.0-2.0) % Neut # (Auto) (1.40-7.00) K/uL Lymph # (Auto) (0.50-3.50) K/uL [place] # (Auto) (0.00-1.00) K/uL Eos # (Auto) (0.00-0.50) K/uL Baso # (Auto) (0.00-0.20) K/uL PT (9.6-11.3) SEC INR APTT 24.7 (23.6-29.8) SEC Sodium (136-145) mmol/L Potassium (3.5-5.1) mmol/L Chloride (98-107) mmol/L Carbon Dioxide (21.0-32.0) mmol/L Anion Gap (7-15) meq/L BUN (7-18) mg/dL Creatinine (0.51-1.17) mg/dL Est Cr Clr Drug Dosing Estimated GFR (MDRD) mL/min Glucose (70-99) mg/dL Calcium (8.5-10.1) mg/dL Phosphorus (2.6-4.7) mg/dL Magnesium (1.8-2.4) mg/dL Total Bilirubin (0.2-1.0) mg/dL AST (15-37) U/L ALT (12-78) U/L Alkaline Phosphatase (46-116) IU/L Troponin I High Sens (<=76) ng/L C-Reactive Protein (<=0.9) mg/dL NT-Pro-B Natriuret Pep (0-125) pg/mL Total Protein (6.4-8.2) g/dL Albumin (3.4-5.0) g/dL TSH, Ultra Sensitive (0.358-3.740) mIU/mL Meds: Medications Generic Name Dose Route Start Last Admin Trade Name Freq PRN Reason Stop Dose Admin Ceftriaxone Sodium 1 gm 05/06/21 03:30 Ceftriaxone 1 Gm Vial IVPUSH Q24H CHRIS Doxycycline Monohydrate 100 mg 05/06/21 03:30 Doxycycline Monohydrate 100 Mg Cap PO BID CHRIS Lactated Ringer's 1,000 mls @ 500 mls/hr 05/06/21 02:45 05/06/21 02:37 Ringers, Lactated IV 500 mls/hr ASDIRECTED CHRIS Administration Sodium Chloride 10 ml 05/06/21 01:57 Sodium Chloride 0.9% 10 Ml Syringe FLUSH ASDIRECTED PRN Keep Vein Open Discontinued Medications Generic Name Dose Route Start Last Admin Trade Name Freq PRN Reason Stop Dose Admin Aspirin 324 mg 05/06/21 02:41 Aspirin 81 Mg Tab.Chew PO 05/06/21 02:42 ONETIME ONE Ceftriaxone Sodium 1 gm/ 100 mls @ 200 mls/hr 05/06/21 03:30 Sodium Chloride IV Q24H CHRIS - Radiology Interpretation Free Text/Narrative:: CT brain showed no acute intracranial findings. Mild stable chronic changes. Mild mucosal thickening involving L spenoid, bilateral maxillary sinuses. Chest x-ray shows streaky bibasilar opacities, ? atelectasis. Departure - Departure Time of Disposition: 03:15 Disposition: Home, Self-Care 01 Clinical Impression: NSTEMI (non-ST elevated myocardial infarction), CAP (community acquired pneumonia), Sinusitis, Vertigo - Discharge Information - Problem List Review Problem List Initiated/Reviewed/Updated: Yes - My Orders Last 24 Hours: My Active Orders 05/06/21 01:57 Sodium Chloride 0.9% [Saline Flush] 10 ml FLUSH ASDIRECTED PRN Peripheral IV Insertion Adult [OM.PC] Routine 05/06/21 01:58 EKG Documentation Completion [RC] ASDIRECTED Peripheral IV Care [RC] . DIRECTED 05/06/21 01:59 Head wo Cont [CT] Stat 05/06/21 02:00 Chest 1V Frontal [CR] Stat 05/06/21 02:21 CARBOXYHEMOGLOBIN [REF] Stat 05/06/21 02:45 Lactated Ringers [Ringers, Lactated] 1,000 ml IV ASDIRECTED - Assessment/Plan Last 24 Hours: My Active Orders 05/06/21 01:57 Sodium Chloride 0.9% [Saline Flush] 10 ml FLUSH ASDIRECTED PRN Peripheral IV Insertion Adult [OM.PC] Routine 05/06/21 01:58 EKG Documentation Completion [RC] ASDIRECTED Peripheral IV Care [RC] . DIRECTED 05/06/21 01:59 Head wo Cont [CT] Stat 05/06/21 02:00 Chest 1V Frontal [CR] Stat 05/06/21 02:21 CARBOXYHEMOGLOBIN [REF] Stat 05/06/21 02:45 Lactated Ringers [Ringers, Lactated] 1,000 ml IV ASDIRECTED Plan: Pt. will be admitted observation. He is a code 1. [facility] was contacted about transferring the patient due to elevated troponin but they are on diversion. They advised checking back in the late morning/early afternoon tomorrow. Will trend troponin. EKG was unchanged from previous. Will repeat as necessary. Will discontinue IV LR after 1 liter. Pt. was given aspirin 324mg PO on admission. He was started on IV lovenox 1mg/kg BID. He will be started on IV rocephin and doxycycline for possible CAP, given his history of cough, shortness of breath, and bibasilar opacification on his chest x-ray. Will start incentive spirometry. He also admits to chronic sinus congestion. He may have chronic sinusitis as well. Carboxyhemoglobin was drawn and is a sendout. PT to see the patient to see if they feel there is a vestibular component to how the patient is feeling.
[2021-05-06] MEDS ORDERED: cefTRIAXone 1 GM in Sodium Chloride 0.9% 100 ML IV SCH (03:30)
[2021-05-06] MEDS: Sodium Chloride 0.9% 10 ML Syringe FLUSH PRN ×2 (03:38→12:14)
[2021-05-06] MEDS: cefTRIAXone 1 GM Vial IVPUSH SCH (03:39)
[2021-05-06] MEDS: Doxycycline Monohydrate 100 MG Cap PO SCH ×3 (03:39→17:10)
[2021-05-06] MEDS ORDERED: Albuterol 6.7 GM Inhaler INH PRN (04:10)
[2021-05-06] MEDS ORDERED: Acetaminophen 500 MG Tab PO PRN (04:10)
[2021-05-06] MEDS ORDERED: Diclofenac Sodium 1% Gel 100 GM Tube TOP PRN (04:10)
[2021-05-06] MEDS ORDERED: Non-Formulary Medication 1 Each (Fenofibrate [Fenofibrate] 160 MG Tablet) PO SCH (04:15)
[2021-05-06] MEDS: Enoxaparin 100 MG/1 ML Syringe SUBCUT SCH ×2 (05:30→17:08)
[2021-05-06] MEDS ORDERED: RANOLAZINE 500 MG PO SCH (08:00)
[2021-05-06] MEDS ORDERED: PRASUGREL 10 MG PO SCH (08:00)
[2021-05-06] MEDS ORDERED: Non-Formulary Medication 1 Each (Liraglutide [Victoza] 18 MG/3 ML Pen) SQ SCH (08:00)
[2021-05-06] MEDS ORDERED: ASCORBIC ACID 125 MG PO SCH (08:00)
[2021-05-06] MEDS ORDERED: ALPHA LIPOIC ACID 200 MG PO SCH (08:00)
[2021-05-06] MEDS: Allopurinol 100 MG Tab PO SCH (08:07)
[2021-05-06] MEDS: Aspirin 81 MG Tab.Chew PO SCH (08:07)
[2021-05-06] MEDS: Cyanocobalamin (Vitamin B12) 1,000 MCG Tab PO SCH (08:07)
[2021-05-06] MEDS: Pantoprazole 40 MG Tab.CR PO SCH (08:07)
[2021-05-06] MEDS: Tamsulosin 0.4 MG Cap.ER PO SCH (08:08)
[2021-05-06] MEDS: Insulin Lispro 100 Units/ML 3 ML Vial SUBCUT SCH ×3 (08:08→17:09)
[2021-05-06] MEDS: Insulin Glarg,Human.Rec.Analog 100 Unit/ML SUBCUT SCH ×3 (08:09→11:21)
[2021-05-06] MEDS: Metoprolol Succinate 50 MG Tab.ER PO SCH (08:10)
[2021-05-06] MEDS: Formoterol/Mometasone 100-5 MCG 8.8 GM Inhaler IH SCH (08:18)
--- NOTE | 2021-05-06 12:29 | PCM.PN ---
- General Info Date of Service: 05/06/21 Admission Dx/Problem (Free Text): Pt. states that he is feeling better. He states that his vertigo has improved. Troponin was trended. Initial was 93 on admission, up to 97 and back down to 94. [facility] [employer] aide was contacted early this AM but were unable to accept patient, as there were no beds available. As of noon on 05/06/2021, there continue to be beds available. Pt. states that the discomfort in his chest is improving. On rounds this AM, he rated the discomfort about a 2. He was reassessed at about noon and he rated it a 0. Denies any shortness of breath, palpitation, nausea, vomiting, or diaphoresis. PT did see the patient this AM. She was unable to provoke any symptoms of vertigo with [place] today. He states that he continues to have some cough. Functional Status: Reports: Pain Controlled - Review of Systems General: Reports: No Symptoms HEENT: Reports: No Symptoms Pulmonary: Reports: No Symptoms Cardiovascular: Reports: Chest Pain, Lightheadedness. Denies: Palpitations, Orthopnea Gastrointestinal: Reports: No Symptoms Genitourinary: Reports: No Symptoms Musculoskeletal: Reports: No Symptoms Skin: Reports: No Symptoms Neurological: Reports: No Symptoms Psychiatric: Reports: No Symptoms - Patient Data Vitals - Most Recent: Last Vital Signs Temp 37.0 C 05/06/21 12:00 Pulse 69 05/06/21 12:00 Resp 20 05/06/21 12:00 BP 134/55 L 05/06/21 12:00 Pulse Ox 96 05/06/21 12:00 Weight - Most Recent: 111.1 kg I&O - Last 24 Hours: Intake & Output 05/05/21 05/06/21 05/06/21 22:59 06:59 14:59 Intake Total 200 Balance 200 Lab Results Last 24 Hours: Laboratory Results - last 24 hr 05/06/21 05/06/21 05/06/21 Range/Units 01:57 01:57 01:57 WBC 9.2 (4.0-10.2) K/uL RBC 4.15 L (4.33-5.41) M/uL Hgb 12.2 L (13.1-16.8) g/dL Hct 36.6 L (39.0-49.0) % MCV 88.2 D (84.0-98.0) fL MCH 29.4 (28.2-33.3) pg MCHC 33.3 (31.7-36.0) g/dL RDW 13.7 (11.2-14.1) % Plt Count 160 (150-350) K/uL Neut % (Auto) 70.7 (45.0-80.0) % Lymph % (Auto) 17.8 (10.0-50.0) % Branch % (Auto) 9.5 (2.0-14.0) % Eos % (Auto) 1.8 (0.0-5.0) % Baso % (Auto) 0.2 (0.0-2.0) % Neut # (Auto) 6.51 (1.40-7.00) K/uL Lymph # (Auto) 1.64 (0.50-3.50) K/uL Branch # (Auto) 0.88 (0.00-1.00) K/uL Eos # (Auto) 0.17 (0.00-0.50) K/uL Baso # (Auto) 0.02 (0.00-0.20) K/uL PT 10.0 (9.6-11.3) SEC INR 1.0 APTT (23.6-29.8) SEC Sodium 137 (136-145) mmol/L Potassium 4.1 (3.5-5.1) mmol/L Chloride 101 (98-107) mmol/L Carbon Dioxide 24.6 (21.0-32.0) mmol/L Anion Gap 11.4 (7-15) meq/L BUN 31 H (7-18) mg/dL Creatinine 1.84 H (0.51-1.17) mg/dL Est Cr Clr Drug Dosing TNP Estimated GFR (MDRD) 37 mL/min Glucose 305 H (70-99) mg/dL POC Glucose (70-99) mg/dL Calcium 8.9 (8.5-10.1) mg/dL Phosphorus 2.6 (2.6-4.7) mg/dL Magnesium 1.8 (1.8-2.4) mg/dL Total Bilirubin 0.3 (0.2-1.0) mg/dL AST 15 (15-37) U/L ALT 18 (12-78) U/L Alkaline Phosphatase 116 (46-116) IU/L Troponin I High Sens 93 H* (<=76) ng/L C-Reactive Protein 5.1 H (<=0.9) mg/dL NT-Pro-B Natriuret Pep 534 H (0-125) pg/mL Total Protein 6.7 (6.4-8.2) g/dL Albumin 3.4 (3.4-5.0) g/dL TSH, Ultra Sensitive 1.216 (0.358-3.740) mIU/mL 05/06/21 05/06/21 05/06/21 Range/Units 01:57 06:10 07:38 WBC (4.0-10.2) K/uL RBC (4.33-5.41) M/uL Hgb (13.1-16.8) g/dL Hct (39.0-49.0) % MCV (84.0-98.0) fL MCH (28.2-33.3) pg MCHC (31.7-36.0) g/dL RDW (11.2-14.1) % Plt Count (150-350) K/uL Neut % (Auto) (45.0-80.0) % Lymph % (Auto) (10.0-50.0) % Branch % (Auto) (2.0-14.0) % Eos % (Auto) (0.0-5.0) % Baso % (Auto) (0.0-2.0) % Neut # (Auto) (1.40-7.00) K/uL Lymph # (Auto) (0.50-3.50) K/uL Branch # (Auto) (0.00-1.00) K/uL Eos # (Auto) (0.00-0.50) K/uL Baso # (Auto) (0.00-0.20) K/uL PT (9.6-11.3) SEC INR APTT 24.7 (23.6-29.8) SEC Sodium (136-145) mmol/L Potassium (3.5-5.1) mmol/L Chloride (98-107) mmol/L Carbon Dioxide (21.0-32.0) mmol/L Anion Gap (7-15) meq/L BUN (7-18) mg/dL Creatinine (0.51-1.17) mg/dL Est Cr Clr Drug Dosing Estimated GFR (MDRD) mL/min Glucose (70-99) mg/dL POC Glucose 229 H (70-99) mg/dL Calcium (8.5-10.1) mg/dL Phosphorus (2.6-4.7) mg/dL Magnesium (1.8-2.4) mg/dL Total Bilirubin (0.2-1.0) mg/dL AST (15-37) U/L ALT (12-78) U/L Alkaline Phosphatase (46-116) IU/L Troponin I High Sens 97 H* (<=76) ng/L C-Reactive Protein (<=0.9) mg/dL NT-Pro-B Natriuret Pep (0-125) pg/mL Total Protein (6.4-8.2) g/dL Albumin (3.4-5.0) g/dL TSH, Ultra Sensitive (0.358-3.740) mIU/mL 05/06/21 Range/Units 10:48 WBC (4.0-10.2) K/uL RBC (4.33-5.41) M/uL Hgb (13.1-16.8) g/dL Hct (39.0-49.0) % MCV (84.0-98.0) fL MCH (28.2-33.3) pg MCHC (31.7-36.0) g/dL RDW (11.2-14.1) % Plt Count (150-350) K/uL Neut % (Auto) (45.0-80.0) % Lymph % (Auto) (10.0-50.0) % Branch % (Auto) (2.0-14.0) % Eos % (Auto) (0.0-5.0) % Baso % (Auto) (0.0-2.0) % Neut # (Auto) (1.40-7.00) K/uL Lymph # (Auto) (0.50-3.50) K/uL Branch # (Auto) (0.00-1.00) K/uL Eos # (Auto) (0.00-0.50) K/uL Baso # (Auto) (0.00-0.20) K/uL PT (9.6-11.3) SEC INR APTT (23.6-29.8) SEC Sodium (136-145) mmol/L Potassium (3.5-5.1) mmol/L Chloride (98-107) mmol/L Carbon Dioxide (21.0-32.0) mmol/L Anion Gap (7-15) meq/L BUN (7-18) mg/dL Creatinine (0.51-1.17) mg/dL Est Cr Clr Drug Dosing Estimated GFR (MDRD) mL/min Glucose (70-99) mg/dL POC Glucose (70-99) mg/dL Calcium (8.5-10.1) mg/dL Phosphorus (2.6-4.7) mg/dL Magnesium (1.8-2.4) mg/dL Total Bilirubin (0.2-1.0) mg/dL AST (15-37) U/L ALT (12-78) U/L Alkaline Phosphatase (46-116) IU/L Troponin I High Sens 94 H* (<=76) ng/L C-Reactive Protein (<=0.9) mg/dL NT-Pro-B Natriuret Pep (0-125) pg/mL Total Protein (6.4-8.2) g/dL Albumin (3.4-5.0) g/dL TSH, Ultra Sensitive (0.358-3.740) mIU/mL Med Orders - Current: Current Medications Acetaminophen (Acetaminophen 500 Mg Tab) 500 mg PO ASDIRECTED PRN PRN Reason: Pain Albuterol (Albuterol 6.7 Gm Inhaler) 0 gm INH Q4H PRN PRN Reason: Shortness of Breath Allopurinol (Allopurinol 100 Mg Tab) 300 mg PO DAILY [facility] Last Admin: 05/06/21 08:07 Dose: 300 mg Documented by: Aspirin (Aspirin 81 Mg Tab.Chew) 81 mg PO DAILY [facility] Last Admin: 05/06/21 08:07 Dose: 81 mg Documented by: Ceftriaxone Sodium (Ceftriaxone 1 Gm Vial) 1 gm IVPUSH Q24H [facility] Last Admin: 05/06/21 03:39 Dose: 1 gm Documented by: Cyanocobalamin (Cyanocobalamin (Vitamin B12) 1,000 Mcg Tab) 1,000 mcg PO DAILY [facility] Last Admin: 05/06/21 08:07 Dose: 1,000 mcg Documented by: Diclofenac Sodium (Diclofenac Sodium 1% Gel 100 Gm Tube) 1 gm TOP BID PRN PRN Reason: muscle aches Doxycycline Monohydrate (Doxycycline Monohydrate 100 Mg Cap) 100 mg PO BID [facility] Last Admin: 05/06/21 08:07 Dose: 100 mg Documented by: Enoxaparin Sodium (Enoxaparin 100 Mg/1 Ml Syringe) 100 mg SUBCUT Q12H [facility] Last Admin: 05/06/21 05:30 Dose: 100 mg Documented by: Furosemide (Furosemide 20 Mg Tab) 20 mg PO MoWeFr@0800 [facility] Gabapentin (Gabapentin 100 Mg Cap) 200 mg PO BEDTIME [facility] Lactated Ringer's (Ringers, Lactated) 1,000 mls @ 500 mls/hr IV ASDIRECTED [facility] Last Admin: 05/06/21 02:37 Dose: 500 mls/hr Documented by: Insulin Glargine (Insulin Glarg,Human.Rec.Analog 100 Unit/Ml) 70 unit SUBCUT DAILY [facility] Last Admin: 05/06/21 11:21 Dose: 70 units Documented by: Insulin Human Lispro (Insulin Lispro 100 Units/Ml 3 Ml Vial) 5 unit SUBCUT TIDMEALS [facility] Last Admin: 05/06/21 12:13 Dose: 5 units Documented by: Isosorbide Mononitrate (Isosorbide Mononitrate 60 Mg Tab.Er) 120 mg PO DAILY [facility] Metoprolol Succinate (Metoprolol Succinate 50 Mg Tab.Er) 50 mg PO DAILY [facility] Last Admin: 05/06/21 08:10 Dose: 50 mg Documented by: Mometasone Furoate/Formoterol Fumar (Formoterol/Mometasone 100-5 Mcg 8.8 Gm Inhaler) 0 puff IH DAILY [facility] Last Admin: 05/06/21 08:18 Dose: 2 inh Documented by: Non-Formulary Medication (Alpha Lipoic Acid [Alpha Lipoic Acid]) 200 mg PO DAILY [facility] Non-Formulary Medication (Ascorbic Acid [Vitamin C]) 100 mg PO DAILY [facility] Non-Formulary Medication (Fenofibrate [Fenofibrate]) 160 mg PO ASDIRECTED [facility] Non-Formulary Medication (Liraglutide [Victoza]) 1.8 mg SQ DAILY [facility] Non-Formulary Medication (Prasugrel [Effient]) 10 mg PO DAILY [facility] Non-Formulary Medication (Ranolazine) 500 mg PO DAILY@08,20 [facility] Non-Formulary Medication (Tizanidine [Zanaflex]) 1 - 2 tab PO Q8H PRN PRN Reason: Spasms Pantoprazole Sodium (Pantoprazole 40 Mg Tab.Cr) 40 mg PO ACBREAKFAST [facility] Last Admin: 05/06/21 08:07 Dose: 40 mg Documented by: Sodium Chloride (Sodium Chloride 0.9% 10 Ml Syringe) 10 ml FLUSH ASDIRECTED PRN PRN Reason: Keep Vein Open Last Admin: 05/06/21 12:14 Dose: 10 ml Documented by: Tamsulosin HCl (Tamsulosin 0.4 Mg Cap.Er) 0.4 mg PO DAILY [facility] Last Admin: 05/06/21 08:08 Dose: 0.4 mg Documented by: Discontinued Medications Aspirin (Aspirin 81 Mg Tab.Chew) 324 mg PO ONETIME ONE Stop: 05/06/21 02:42 Last Admin: 05/06/21 03:39 Dose: 324 mg Documented by: Ceftriaxone Sodium 1 gm/ (Sodium Chloride) 100 mls @ 200 mls/hr IV Q24H [facility] Insulin Glargine (Insulin Glarg,Human.Rec.Analog 100 Unit/Ml) 140 unit SUBCUT DAILY [facility] Last Admin: 05/06/21 08:47 Dose: Not Given Documented by: Isosorbide Mononitrate (Isosorbide Mononitrate 30 Mg Tab.Er) 60 mg PO BEDTIME [facility] - Exam General: Alert, Oriented HEENT: Pupils Equal, Pupils Reactive, EOMI, Mucous Membr. Moist/[place] Neck: Supple Lungs: Clear to Auscultation, Normal Respiratory Effort Cardiovascular: Regular Rate, Regular Rhythm GI/Abdominal Exam: Normal Bowel Sounds, Soft, Non-Tender, No Organomegaly, No Distention, No Mass (Male) Exam: Deferred Back Exam: Normal Inspection, Full Range of Motion Extremities: Normal Inspection, Normal Range of Motion, Non-Tender, No Pedal Edema, Normal Capillary Refill Skin: Warm, Dry, Intact Neurological: No New Focal Deficit, Cranial Nerves Intact Psy/Mental Status: Alert, Normal Affect, Normal Mood - Patient Data Lab Results Last 24 hrs: Laboratory Results - last 24 hr 05/06/21 05/06/21 05/06/21 Range/Units 01:57 01:57 01:57 WBC 9.2 (4.0-10.2) K/uL RBC 4.15 L (4.33-5.41) M/uL Hgb 12.2 L (13.1-16.8) g/dL Hct 36.6 L (39.0-49.0) % MCV 88.2 D (84.0-98.0) fL MCH 29.4 (28.2-33.3) pg MCHC 33.3 (31.7-36.0) g/dL RDW 13.7 (11.2-14.1) % Plt Count 160 (150-350) K/uL Neut % (Auto) 70.7 (45.0-80.0) % Lymph % (Auto) 17.8 (10.0-50.0) % Branch % (Auto) 9.5 (2.0-14.0) % Eos % (Auto) 1.8 (0.0-5.0) % Baso % (Auto) 0.2 (0.0-2.0) % Neut # (Auto) 6.51 (1.40-7.00) K/uL Lymph # (Auto) 1.64 (0.50-3.50) K/uL Branch # (Auto) 0.88 (0.00-1.00) K/uL Eos # (Auto) 0.17 (0.00-0.50) K/uL Baso # (Auto) 0.02 (0.00-0.20) K/uL PT 10.0 (9.6-11.3) SEC INR 1.0 APTT (23.6-29.8) SEC Sodium 137 (136-145) mmol/L Potassium 4.1 (3.5-5.1) mmol/L Chloride 101 (98-107) mmol/L Carbon Dioxide 24.6 (21.0-32.0) mmol/L Anion Gap 11.4 (7-15) meq/L BUN 31 H (7-18) mg/dL Creatinine 1.84 H (0.51-1.17) mg/dL Est Cr Clr Drug Dosing TNP Estimated GFR (MDRD) 37 mL/min Glucose 305 H (70-99) mg/dL POC Glucose (70-99) mg/dL Calcium 8.9 (8.5-10.1) mg/dL Phosphorus 2.6 (2.6-4.7) mg/dL Magnesium 1.8 (1.8-2.4) mg/dL Total Bilirubin 0.3 (0.2-1.0) mg/dL AST 15 (15-37) U/L ALT 18 (12-78) U/L Alkaline Phosphatase 116 (46-116) IU/L Troponin I High Sens 93 H* (<=76) ng/L C-Reactive Protein 5.1 H (<=0.9) mg/dL NT-Pro-B Natriuret Pep 534 H (0-125) pg/mL Total Protein 6.7 (6.4-8.2) g/dL Albumin 3.4 (3.4-5.0) g/dL TSH, Ultra Sensitive 1.216 (0.358-3.740) mIU/mL 05/06/21 05/06/21 05/06/21 Range/Units 01:57 06:10 07:38 WBC (4.0-10.2) K/uL RBC (4.33-5.41) M/uL Hgb (13.1-16.8) g/dL Hct (39.0-49.0) % MCV (84.0-98.0) fL MCH (28.2-33.3) pg MCHC (31.7-36.0) g/dL RDW (11.2-14.1) % Plt Count (150-350) K/uL Neut % (Auto) (45.0-80.0) % Lymph % (Auto) (10.0-50.0) % Branch % (Auto) (2.0-14.0) % Eos % (Auto) (0.0-5.0) % Baso % (Auto) (0.0-2.0) % Neut # (Auto) (1.40-7.00) K/uL Lymph # (Auto) (0.50-3.50) K/uL Branch # (Auto) (0.00-1.00) K/uL Eos # (Auto) (0.00-0.50) K/uL Baso # (Auto) (0.00-0.20) K/uL PT (9.6-11.3) SEC INR APTT 24.7 (23.6-29.8) SEC Sodium (136-145) mmol/L Potassium (3.5-5.1) mmol/L Chloride (98-107) mmol/L Carbon Dioxide (21.0-32.0) mmol/L Anion Gap (7-15) meq/L BUN (7-18) mg/dL Creatinine (0.51-1.17) mg/dL Est Cr Clr Drug Dosing Estimated GFR (MDRD) mL/min Glucose (70-99) mg/dL POC Glucose 229 H (70-99) mg/dL Calcium (8.5-10.1) mg/dL Phosphorus (2.6-4.7) mg/dL Magnesium (1.8-2.4) mg/dL Total Bilirubin (0.2-1.0) mg/dL AST (15-37) U/L ALT (12-78) U/L Alkaline Phosphatase (46-116) IU/L Troponin I High Sens 97 H* (<=76) ng/L C-Reactive Protein (<=0.9) mg/dL NT-Pro-B Natriuret Pep (0-125) pg/mL Total Protein (6.4-8.2) g/dL Albumin (3.4-5.0) g/dL TSH, Ultra Sensitive (0.358-3.740) mIU/mL 05/06/21 Range/Units 10:48 WBC (4.0-10.2) K/uL RBC (4.33-5.41) M/uL Hgb (13.1-16.8) g/dL Hct (39.0-49.0) % MCV (84.0-98.0) fL MCH (28.2-33.3) pg MCHC (31.7-36.0) g/dL RDW (11.2-14.1) % Plt Count (150-350) K/uL Neut % (Auto) (45.0-80.0) % Lymph % (Auto) (10.0-50.0) % Branch % (Auto) (2.0-14.0) % Eos % (Auto) (0.0-5.0) % Baso % (Auto) (0.0-2.0) % Neut # (Auto) (1.40-7.00) K/uL Lymph # (Auto) (0.50-3.50) K/uL Branch # (Auto) (0.00-1.00) K/uL Eos # (Auto) (0.00-0.50) K/uL Baso # (Auto) (0.00-0.20) K/uL PT (9.6-11.3) SEC INR APTT (23.6-29.8) SEC Sodium (136-145) mmol/L Potassium (3.5-5.1) mmol/L Chloride (98-107) mmol/L Carbon Dioxide (21.0-32.0) mmol/L Anion Gap (7-15) meq/L BUN (7-18) mg/dL Creatinine (0.51-1.17) mg/dL Est Cr Clr Drug Dosing Estimated GFR (MDRD) mL/min Glucose (70-99) mg/dL POC Glucose (70-99) mg/dL Calcium (8.5-10.1) mg/dL Phosphorus (2.6-4.7) mg/dL Magnesium (1.8-2.4) mg/dL Total Bilirubin (0.2-1.0) mg/dL AST (15-37) U/L ALT (12-78) U/L Alkaline Phosphatase (46-116) IU/L Troponin I High Sens 94 H* (<=76) ng/L C-Reactive Protein (<=0.9) mg/dL NT-Pro-B Natriuret Pep (0-125) pg/mL Total Protein (6.4-8.2) g/dL Albumin (3.4-5.0) g/dL TSH, Ultra Sensitive (0.358-3.740) mIU/mL Result Diagrams: 05/06/21 01:57 05/06/21 01:57 Sepsis Event Note - Evaluation Sepsis Screening Result: No Definite Risk - Focused Exam Vital Signs: Vital Signs Temp Pulse Pulse Resp BP BP Pulse Ox 05/06/21 12:00 37.0 C 69 20 134/55 L 96 05/06/21 08:10 73 105/43 L 05/06/21 08:00 36.9 C 73 20 105/43 L 93 L 05/06/21 04:05 36.8 C 72 20 147/57 H 93 L 05/06/21 03:00 74 20 138/55 L 94 L 05/06/21 02:35 74 20 131/48 L 92 L 05/06/21 02:00 77 18 138/49 L 94 L 05/06/21 01:45 37.1 C 79 20 115/43 L 92 L 05/06/21 01:40 37.1 C 79 20 127/43 L 93 L - Problem List Review Problem List Initiated/Reviewed/Updated: Yes - My Orders Last 24 Hours: My Active Orders 05/06/21 01:57 Sodium Chloride 0.9% [Saline Flush] 10 ml FLUSH ASDIRECTED PRN Peripheral IV Insertion Adult [OM.PC] Routine 05/06/21 01:58 Peripheral IV Care [RC] . DIRECTED 05/06/21 01:59 Head wo Cont [CT] Stat 05/06/21 02:00 Chest 1V Frontal [CR] Stat 05/06/21 02:40 CARBOXYHEMOGLOBIN [REF] Stat 05/06/21 02:45 Lactated Ringers [Ringers, Lactated] 1,000 ml IV ASDIRECTED 05/06/21 03:14 Patient Status [ADT] Routine 05/06/21 03:30 Doxycycline Monohydrate 100 mg PO BID cefTRIAXone [Rocephin] 1 gm IVPUSH Q24H 05/06/21 04:00 Enoxaparin [Lovenox] 100 mg SUBCUT Q12H 05/06/21 04:03 Glucose [Blood Glucose Check, Bedside] [RC] QIDACANDBED 05/06/21 04:04 Code Status [Resuscitation Status] Routine 05/06/21 04:05 Cardiac Monitoring [RC] CONTINUOUS Intake and Output [RC] QSHIFT Up With Assistance [RC] ASDIRECTED VTE/DVT Education [RC] PER UNIT ROUTINE Vital Signs [RC] Q4HR 05/06/21 04:10 Acetaminophen [Tylenol Extra Strength] 500 mg PO ASDIRECTED PRN Albuterol [Proventil HFA] 0 gm INH Q4H PRN Diclofenac Sodium [Voltaren 1% Gel] 1 gm TOP BID PRN tiZANidine [Zanaflex] 1 - 2 tab PO Q8H PRN 05/06/21 04:15 Fenofibrate [Fenofibrate] 160 mg PO ASDIRECTED 05/06/21 Breakfast ADA Diabetic [[place] [employer] Diet] [DIET] Pantoprazole [ProTONIX] 40 mg PO ACBREAKFAST 05/06/21 08:00 Alpha Lipoic Acid [Alpha Lipoic Acid] 200 mg PO DAILY Ascorbic Acid [Vitamin C] 100 mg PO DAILY Aspirin 81 mg PO DAILY Cyanocobalamin (Vitamin B12) [Vitamin B12] 1,000 mcg PO DAILY Insulin Lispro [HumaLOG] 5 unit SUBCUT TIDMEALS Liraglutide [Victoza] 1.8 mg SQ DAILY Metoprolol Succinate [Toprol XL] 50 mg PO DAILY Mometasone/Formoterol [Dulera 100-5 MCG] 0 puff IH DAILY Prasugrel [Effient] 10 mg PO DAILY Ranolazine 500 mg PO DAILY@ Tamsulosin [Flomax] 0.4 mg PO DAILY allopurinoL [Zyloprim] 300 mg PO DAILY 05/06/21 09:13 PT Evaluation and Treatment [CONS] Routine 05/06/21 10:30 Insulin Glarg,Human.Rec.Analog [LantUS] 70 unit SUBCUT DAILY 05/06/21 20:00 Gabapentin [Neurontin] 200 mg PO BEDTIME Isosorbide Mononitrate [Imdur] 120 mg PO DAILY 05/07/21 08:00 Furosemide [Lasix] 20 mg PO MoWeFr@0800 - Assessment Assessment:: 1) NSTEMI 2)Community acquired pneumonia - Plan Plan:: Discussed case with Dr. Choe, customer project manager at [facility]. He advised continuing to trend the patient's troponin. He also advised increasing his Imdur to 120mg Q HS. He also advised continuing lovenox. He is currently on aspirin 81mg daily, as well as beta rafi and Effient. No other current changes to medications were advised. Will continue IV rocephin and doxycycline for community acquired pneumonia. Incentive spirometry. Anticipate discharge if continued downward trend of troponin, no acute EKG changes, and continued resolution of chest pain vs. transfer for cardiology evaluation if the discomfort persists or if there is an elevation in troponin/E KG changes. Pt. complains of difficulty with constipation. Will start miralax and docusate. Encouraged to increase consumption of water and ambulation today.
[2021-05-06] MEDS ORDERED: tiZANidine 4 MG Tab PO PRN (16:24)
[2021-05-06] MEDS ORDERED: Isosorbide Mononitrate 30 MG Tab.ER PO SCH (20:00)
[2021-05-06] MEDS ORDERED: Gabapentin 100 MG Cap PO SCH (20:00)
[2021-05-06] MEDS ORDERED: Isosorbide Mononitrate 60 MG Tab.ER PO SCH (20:00)
[2021-05-07] MEDS: cefTRIAXone 1 GM Vial IVPUSH SCH (04:05)
[2021-05-07] MEDS: Enoxaparin 100 MG/1 ML Syringe SUBCUT SCH (04:06)
[2021-05-07] MEDS: Pantoprazole 40 MG Tab.CR PO SCH (07:47)
[2021-05-07] MEDS: Tamsulosin 0.4 MG Cap.ER PO SCH (07:47)
[2021-05-07] MEDS: Metoprolol Succinate 50 MG Tab.ER PO SCH (07:47)
[2021-05-07] MEDS: Cyanocobalamin (Vitamin B12) 1,000 MCG Tab PO SCH (07:47)
[2021-05-07] MEDS: Doxycycline Monohydrate 100 MG Cap PO SCH (07:48)
[2021-05-07] MEDS: Aspirin 81 MG Tab.Chew PO SCH (07:48)
[2021-05-07] MEDS: Allopurinol 100 MG Tab PO SCH (07:48)
[2021-05-07] MEDS: Formoterol/Mometasone 100-5 MCG 8.8 GM Inhaler IH SCH (07:49)
[2021-05-07] MEDS: Insulin Glarg,Human.Rec.Analog 100 Unit/ML SUBCUT SCH (07:50)
[2021-05-07] MEDS: Insulin Lispro 100 Units/ML 3 ML Vial SUBCUT SCH ×2 (07:52→12:03)
[2021-05-07 07:57] LABS: ANION GAP 6.6 meq/L (7-15)
[2021-05-07] MEDS ORDERED: Furosemide 20 MG Tab PO SCH (08:00)
[2021-05-07 12:08] VITALS: BP 146/73; PULSE 66
--- NOTE | 2021-05-07 15:43 | PCM.DCSUM1 ---
Discharge Summary - Hospital Course Brief History: Pt. presented to the ED with numerous complaints, primarily of vertigo and difficulty with ambulation as well as lightheadedness. He also reported some intermittent chest pressure after shoveling snow all day. He has a PMH significant for CAD, CABG x3, stent x17, poorly controlled DMII and microvascular disease. He has been non-compliant with his medications in the past but reports currently trying his best and mostly taking meds as prescribed. Diagnosis: Stroke: No Modified Pitkin Scale: No Symptoms at All Modified Pitkin Scale Score: 0 - Discharge Data Discharge Date: 05/07/21 Discharge Disposition: Home, Self-Care 01 Condition: Good - Referral to Home Health Primary Care Physician: Josee Mcmillan PA-C - Patient Summary/Data Consults: Consultations 05/06/21 09:13 PT Evaluation and Treatment [CONS] Routine Hospital Course: Pt. presented to the ED with numerous complaints, primarily of vertigo and difficulty with ambulation as well as lightheadedness. He also reported some intermittent chest pressure after shoveling snow all day. He has a PMH significant for CAD, CABG x3, stent x17, poorly controlled DMII and microvascular disease. He has been non-compliant with his medications in the past but reports currently trying his best and mostly taking meds as prescribed. Patient was found to have a elevated troponin. Primary cardiology team was consulted with recommendation to continue Lovenox and trend troponin. No new ischemic changes were noted on EKG. Troponin was monitored until peak and trended downward. He remained medically stable and asymptomatic throughout. Chest pain was thought to be likely microvascular. Recommendation from his primary cardiology team was increase Imdur from 60 mg daily to 120 mg nightly. Education was provided at bedside regarding the importance of strict adherence to diabetic diet and maintaining goal A1c less than 6.5. Was also recommended the patient have someone help him shovel. No other medication changes were made. He was thought to be medically stable for discharge from the hospital on the afternoon of 05/07/2021. All questions concerns were addressed at the bedside with the patient and his as well as nursing prior to discharge from the hospital. - Patient Instructions Diet: Heart Healthy Diet Activity: Rest and Relax Today (No shoveling) Driving: May Drive Today Showering/Bathing: May Shower - Discharge Plan *PRESCRIPTION DRUG MONITORING PROGRAM REVIEWED*: Not Applicable *COPY OF PRESCRIPTION DRUG MONITORING REPORT IN PATIENT JAGUAR: Not Applicable Prescriptions/Med Rec: Isosorbide Mononitrate [Imdur] 120 mg PO BEDTIME 30 Days #30 tab.er Home Medications: Home Meds Aspirin 81 mg PO DAILY 02/14/16 [History] Insulin Degludec [Tresiba Flextouch U-200] 70 units SQ DAILY 02/14/16 [History] Liraglutide [Victoza] 1.8 mg SQ DAILY 02/14/16 [History] Metoprolol Succinate [Toprol XL] 50 mg PO DAILY 02/14/16 [History] Pantoprazole [ProTONIX] 40 mg PO DAILY 02/14/16 [History] Prasugrel [Effient] 10 mg PO DAILY 11/18/16 [History] Insulin Aspart [Novolog Flexpen] 5 units SQ TIDMEALS 11/19/16 [History] Allopurinol [Zyloprim] 300 mg PO DAILY 12/19/19 [History] Cyanocobalamin (Vitamin B-12) [Vitamin B-12] 1,000 mcg PO DAILY 12/19/19 [History] Diclofenac Sodium [Voltaren 1% Gel] 1 applic TOP BID PRN 12/19/19 [History] Furosemide [Lasix] 20 mg PO MOWEFR@0812/19/19 [History] Ranolazine [Ranexa] 500 mg PO DAILY@12/19/19 [History] Tamsulosin HCl [Flomax] 0.4 mg PO DAILY 12/19/19 [History] tiZANidine [Zanaflex] 1 - 2 tab PO Q8H PRN 12/19/19 [History] Acetaminophen 500 mg PO Q4H PRN 05/06/21 [History] Albuterol [Ventolin HFA] 2 puff INH Q4H PRN 05/06/21 [History] Ascorbic Acid [Vitamin C] 100 mg PO DAILY 05/06/21 [History] Calcium Carb/D3/Magnesium/Zinc [Pavan Mag Zinc-D Tablet] 1 each PO BID 05/06/21 [History] Canagliflozin [Invokana] 100 mg PO DAILY 05/06/21 [History] Fenofibrate 160 mg PO Q48H 05/06/21 [History] Fluticasone/Vilanterol [Breo Ellipta 100-25 MCG Inhalation Kit] 25 mcg INH DAILY 05/06/21 [History] Gabapentin [Neurontin] 200 mg PO BEDTIME 05/06/21 [History] Lidocaine 2% [Xylocaine 2% Viscous] 5 ml PO Q4H PRN 05/06/21 [History] Nitroglycerin 0.4 mg SL ASDIRECTED PRN 05/06/21 [History] Semaglutide [Ozempic] 0.5 mg SQ Q7D 05/06/21 [History] polyethylene glycoL 3350 [MiraLAX] 3 tsp PO DAILY 05/06/21 [History] Isosorbide Mononitrate [Imdur] 120 mg PO BEDTIME 30 Days #30 tab.er 05/07/21 [Rx] Oxygen Therapy Mode: Room Air Forms: ED Department Discharge - Discharge Summary/Plan Comment DC Time >30 min.: Yes Total # of Minutes for Discharge Time: 65 - General Info Date of Service: 05/07/21 Functional Status: Reports: Pain Controlled - Review of Systems General: Reports: No Symptoms HEENT: Reports: No Symptoms Pulmonary: Reports: No Symptoms Cardiovascular: Reports: No Symptoms Gastrointestinal: Reports: No Symptoms Genitourinary: Reports: No Symptoms Musculoskeletal: Reports: No Symptoms Skin: Reports: No Symptoms Neurological: Reports: No Symptoms Psychiatric: Reports: No Symptoms - Patient Data Vitals - Most Recent: Last Vital Signs Temp 97.8 F 05/07/21 12:00 Pulse 66 05/07/21 12:00 Resp 16 05/07/21 12:00 BP 146/73 H 05/07/21 12:00 Pulse Ox 96 05/07/21 12:00 Weight - Most Recent: 244 lb 14.937 oz I&O - Last 24 hours: Intake & Output 05/07/21 05/07/21 05/07/21 06:59 14:59 22:59 Intake Total 150 740 Balance 150 740 Lab Results - Last 24 hrs: Laboratory Results - last 24 hr 05/06/21 05/06/21 05/07/21 Range/Units 02:40 18:10 07:11 WBC (4.0-10.2) K/uL RBC (4.33-5.41) M/uL Hgb (13.1-16.8) g/dL Hct (39.0-49.0) % MCV (84.0-98.0) fL MCH (28.2-33.3) pg MCHC (31.7-36.0) g/dL RDW (11.2-14.1) % Plt Count (150-350) K/uL Neut % (Auto) (45.0-80.0) % Lymph % (Auto) (10.0-50.0) % [place] % (Auto) (2.0-14.0) % Eos % (Auto) (0.0-5.0) % Baso % (Auto) (0.0-2.0) % Neut # (Auto) (1.40-7.00) K/uL Lymph # (Auto) (0.50-3.50) K/uL [place] # (Auto) (0.00-1.00) K/uL Eos # (Auto) (0.00-0.50) K/uL Baso # (Auto) (0.00-0.20) K/uL Carboxyhemoglobin 2.0 % Sodium 142 (136-145) mmol/L Potassium 4.0 (3.5-5.1) mmol/L Chloride 106 (98-107) mmol/L Carbon Dioxide 29.4 (21.0-32.0) mmol/L Anion Gap 6.6 L (7-15) meq/L BUN 20 H (7-18) mg/dL Creatinine 1.32 H (0.51-1.17) mg/dL Est Cr Clr Drug Dosing 61.37 mL/min Estimated GFR (MDRD) 54 mL/min Glucose 251 H (70-99) mg/dL Calcium 8.6 (8.5-10.1) mg/dL Total Bilirubin 0.4 (0.2-1.0) mg/dL AST 17 (15-37) U/L ALT 17 (12-78) U/L Alkaline Phosphatase 92 (46-116) IU/L Troponin I High Sens 89 H* 89 H* (<=76) ng/L Total Protein 6.1 L (6.4-8.2) g/dL Albumin 2.9 L (3.4-5.0) g/dL 05/07/21 Range/Units 07:11 WBC 5.6 (4.0-10.2) K/uL RBC 4.06 L (4.33-5.41) M/uL Hgb 11.8 L (13.1-16.8) g/dL Hct 36.0 L (39.0-49.0) % MCV 88.7 (84.0-98.0) fL MCH 29.1 (28.2-33.3) pg MCHC 32.8 (31.7-36.0) g/dL RDW 13.7 (11.2-14.1) % Plt Count 138 L (150-350) K/uL Neut % (Auto) 46.5 (45.0-80.0) % Lymph % (Auto) 34.7 (10.0-50.0) % [place] % (Auto) 13.2 (2.0-14.0) % Eos % (Auto) 5.2 H (0.0-5.0) % Baso % (Auto) 0.4 (0.0-2.0) % Neut # (Auto) 2.60 (1.40-7.00) K/uL Lymph # (Auto) 1.94 (0.50-3.50) K/uL [place] # (Auto) 0.74 (0.00-1.00) K/uL Eos # (Auto) 0.29 (0.00-0.50) K/uL Baso # (Auto) 0.02 (0.00-0.20) K/uL Carboxyhemoglobin % Sodium (136-145) mmol/L Potassium (3.5-5.1) mmol/L Chloride (98-107) mmol/L Carbon Dioxide (21.0-32.0) mmol/L Anion Gap (7-15) meq/L BUN (7-18) mg/dL Creatinine (0.51-1.17) mg/dL Est Cr Clr Drug Dosing mL/min Estimated GFR (MDRD) mL/min Glucose (70-99) mg/dL Calcium (8.5-10.1) mg/dL Total Bilirubin (0.2-1.0) mg/dL AST (15-37) U/L ALT (12-78) U/L Alkaline Phosphatase (46-116) IU/L Troponin I High Sens (<=76) ng/L Total Protein (6.4-8.2) g/dL Albumin (3.4-5.0) g/dL Med Orders - Current: Current Medications Acetaminophen (Acetaminophen 500 Mg Tab) 1,000 mg PO Q4H PRN PRN Reason: Pain Albuterol (Albuterol 6.7 Gm Inhaler) 0 gm INH Q4H PRN PRN Reason: Shortness of Breath Allopurinol (Allopurinol 100 Mg Tab) 300 mg PO DAILY [facility] Last Admin: 05/07/21 07:48 Dose: 300 mg Documented by: Aspirin (Aspirin 81 Mg Tab.Chew) 81 mg PO DAILY [facility] Last Admin: 05/07/21 07:48 Dose: 81 mg Documented by: Cyanocobalamin (Cyanocobalamin (Vitamin B12) 1,000 Mcg Tab) 1,000 mcg PO DAILY [facility] Last Admin: 05/07/21 07:47 Dose: 1,000 mcg Documented by: Diclofenac Sodium (Diclofenac Sodium 1% Gel 100 Gm Tube) 1 gm TOP BID PRN PRN Reason: muscle aches Enoxaparin Sodium (Enoxaparin 100 Mg/1 Ml Syringe) 100 mg SUBCUT Q12H [facility] Last Admin: 05/07/21 04:06 Dose: 100 mg Documented by: Furosemide (Furosemide 20 Mg Tab) 20 mg PO MoWeFr@0800 [facility] Last Admin: 05/07/21 07:48 Dose: 20 mg Documented by: Gabapentin (Gabapentin 100 Mg Cap) 200 mg PO BEDTIME [facility] Last Admin: 05/06/21 20:00 Dose: 200 mg Documented by: Insulin Glargine (Insulin Glarg,Human.Rec.Analog 100 Unit/Ml) 70 unit SUBCUT DAILY [facility] Last Admin: 05/07/21 07:50 Dose: 70 units Documented by: Insulin Human Lispro (Insulin Lispro 100 Units/Ml 3 Ml Vial) 5 unit SUBCUT TIDMEALS [facility] Last Admin: 05/07/21 12:03 Dose: 5 units Documented by: Isosorbide Mononitrate (Isosorbide Mononitrate 60 Mg Tab.Er) 120 mg PO BEDTIME [facility] Last Admin: 05/06/21 19:59 Dose: 120 mg Documented by: Metoprolol Succinate (Metoprolol Succinate 50 Mg Tab.Er) 50 mg PO DAILY [facility] Last Admin: 05/07/21 07:47 Dose: 50 mg Documented by: Mometasone Furoate/Formoterol Fumar (Formoterol/Mometasone 100-5 Mcg 8.8 Gm Inhaler) 0 puff IH DAILY [facility] Last Admin: 05/07/21 07:49 Dose: 1 inh Documented by: Non-Formulary Medication (Ascorbic Acid [Vitamin C]) 100 mg PO DAILY [facility] Non-Formulary Medication (Fenofibrate [Fenofibrate]) 160 mg PO ASDIRECTED [facility] Non-Formulary Medication (Liraglutide [Victoza]) 1.8 mg SQ DAILY [facility] Non-Formulary Medication (Prasugrel [Effient]) 10 mg PO DAILY [facility] Non-Formulary Medication (Ranolazine) 500 mg PO DAILY@ [facility] Pantoprazole Sodium (Pantoprazole 40 Mg Tab.Cr) 40 mg PO ACBREAKFAST [facility] Last Admin: 05/07/21 07:47 Dose: 40 mg Documented by: Sodium Chloride (Sodium Chloride 0.9% 10 Ml Syringe) 10 ml FLUSH ASDIRECTED PRN PRN Reason: Keep Vein Open Last Admin: 05/06/21 12:14 Dose: 10 ml Documented by: Tamsulosin HCl (Tamsulosin 0.4 Mg Cap.Er) 0.4 mg PO DAILY [facility] Last Admin: 05/07/21 07:47 Dose: 0.4 mg Documented by: Tizanidine HCl (Tizanidine 4 Mg Tab) 2 mg PO Q8H PRN PRN Reason: Spasms Discontinued Medications Aspirin (Aspirin 81 Mg Tab.Chew) 324 mg PO ONETIME ONE Stop: 05/06/21 02:42 Last Admin: 05/06/21 03:39 Dose: 324 mg Documented by: Ceftriaxone Sodium (Ceftriaxone 1 Gm Vial) 1 gm IVPUSH Q24H [facility] Last Admin: 05/07/21 04:05 Dose: 1 gm Documented by: Doxycycline Monohydrate (Doxycycline Monohydrate 100 Mg Cap) 100 mg PO BID [facility] Last Admin: 05/07/21 07:48 Dose: 100 mg Documented by: Lactated Ringer's (Ringers, Lactated) 1,000 mls @ 500 mls/hr IV ASDIRECTED [facility] Last Admin: 05/06/21 02:37 Dose: 500 mls/hr Documented by: Ceftriaxone Sodium 1 gm/ (Sodium Chloride) 100 mls @ 200 mls/hr IV Q24H [facility] Insulin Glargine (Insulin Glarg,Human.Rec.Analog 100 Unit/Ml) 140 unit SUBCUT DAILY [facility] Last Admin: 05/06/21 08:47 Dose: Not Given Documented by: Isosorbide Mononitrate (Isosorbide Mononitrate 30 Mg Tab.Er) 60 mg PO BEDTIME CHRIS - Exam Quality Assessment: Denies: Supplemental Oxygen, DVT Prophylaxis, Skin Breakdown General: Reports: Alert, Oriented, Cooperative, No Acute Distress HEENT: Reports: EOMI Neck: Reports: Supple Lungs: Reports: Clear to Auscultation, Normal Respiratory Effort. Denies: Rales, Rhonchi, Stridor Cardiovascular: Reports: Regular Rate, Regular Rhythm, No Murmurs. Denies: Tachycardia GI/Abdominal Exam: Soft (Male) Exam: Deferred Rectal (Males) Exam: Deferred Back Exam: Reports: Full Range of Motion Extremities: Normal Range of Motion, Non-Tender Skin: Reports: Warm, Dry Neurological: Reports: No New Focal Deficit Psy/Mental Status: Reports: Normal Affect, Normal Mood *Q Meaningful Use (DIS) - VTE *Q VTE Mechanical Contraindications *Q: Tx/Proc Refused byPt VTE Pharmacological Contraindications *Q: Tx/Proc Refused by Pt VTE Anticoagulation Contraindications: Tx/proc Refused by PT - Stroke *Q Aspirin Contraindications Stroke *Q: Other (Use Special Inst) Anticoagulation Contraindications Stroke *Q: TX/PROC Refused by PT Antithrombotic Contraindications Stroke *Q: TX/PROC Refused by PT Statin Contraindications Stroke *Q: TX/PROC Refused by PT Rehabilitation Assessment Contraindication *Q: Tx/proc refused by pt - AMI *Q Aspirin Contraindications AMI *Q: TX/PROC Refused by PT Statin Contraindications AMI *Q: TX/Proc Refused by PT
== END 2021-05-07 16:30 | disposition home or self-care (01) ==
LOC: SUPCPDRO 01:34 → LL.ED 01:34 → LL.MS 02:58
PROVIDERS: ADMIT Physician Assistant; ATTEND Physician Assistant
DX: R42 Dizziness and giddiness (principal); J32.9 Chronic sinusitis, unspecified; I25.10 Atherosclerotic heart disease of native coronary artery without angina pectoris; E78.00 Pure hypercholesterolemia, unspecified; I10 Essential (primary) hypertension; J45.909 Unspecified asthma, uncomplicated; E11.40 Type 2 diabetes mellitus with diabetic neuropathy, unspecified; E66.9 Obesity, unspecified; Z88.5 Allergy status to narcotic agent; Z88.8 Allergy status to other drugs, medicaments and biological substances; Z79.82 Long term (current) use of aspirin; Z79.899 Other long term (current) drug therapy; Z98.890 Other specified postprocedural states
CPT/HCPCS: 36415; 70450; 71045; 80053; 82375; 82947; 83735; 83880; 84100; 84443; 84484; 85025; 85610; 85730; 86140; 93005; 96372; 96374; 96376; 99285; A9270; G0378; J0696; J1650; J1815; J7120

== ENCOUNTER 2022-03-17 12:39 | Inpatient (IN) | payer MEDICARE, BC ==
[2022-03-17] MEDS ORDERED: Sodium Chloride 0.9% 10 ML Syringe FLUSH PRN (12:40)
[2022-03-17] MEDS ORDERED: Aspirin 81 MG Tab.Chew PO ONE (13:02)
[2022-03-17 13:12] LABS: PTT,PARTIAL THROMBOPLSTIN TIME 25.2 SEC (23.6-29.8)
[2022-03-17 13:26] LABS: ANION GAP 10.7 meq/L (7-15)
[2022-03-17] MEDS: Sodium Chloride 0.9% 1,000 ML IV SCH ×2 (14:08→19:30)
[2022-03-17] MEDS ORDERED: Heparin Sodium 5,000 Units/ML Vial IVPUSH ONE (14:38)
[2022-03-17] MEDS: Heparin Sodium/0.45% NaCl 500 ML IV SCH (15:25)
[2022-03-17] MEDS ORDERED: Magnesium Sulfate/Water 2 GM in Premix Bag 1 BAG IV ONE (17:08)
[2022-03-17] MEDS ORDERED: Acetaminophen 500 MG Tab PO PRN (17:09)
[2022-03-17] MEDS ORDERED: Nitroglycerin 0.4 MG Tab.SL SL PRN (17:09)
[2022-03-17] MEDS ORDERED: Albuterol 6.7 GM Inhaler INH PRN (17:09)
[2022-03-17] MEDS ORDERED: Non-Formulary Medication 1 Each (Semaglutide [Ozempic] 1 MG/0.75 ML Pen.Injctr) SQ SCH (17:15)
[2022-03-17] MEDS ORDERED: 50% Dextrose in Water 50 ML Syringe IVPUSH PRN (17:25)
[2022-03-17] MEDS ORDERED: Glucagon,Human Recombinant 1 MG Vial IM PRN (17:25)
[2022-03-17] MEDS: Insulin Lispro 100 Units/ML 3 ML Vial SUBCUT SCH (17:47)
[2022-03-17] MEDS: Gabapentin 100 MG Cap PO SCH (20:49)
[2022-03-17] MEDS: Isosorbide Mononitrate 60 MG Tab.ER PO SCH (20:50)
[2022-03-18] MEDS: Sodium Chloride 0.9% 1,000 ML IV SCH ×2 (00:44→15:12)
[2022-03-18] MEDS: Polyethylene Glycol 3350 Powder 17 GM Packet PO SCH (07:50)
[2022-03-18] MEDS: Formoterol/Mometasone 100-5 MCG 8.8 GM Inhaler IH SCH ×2 (07:50→17:21)
[2022-03-18] MEDS: glipiZIDE 5 MG Tab PO SCH (07:57)
[2022-03-18] MEDS: Pantoprazole 40 MG Vial IVPUSH SCH (07:57)
[2022-03-18] MEDS: Aspirin 81 MG Tab.Chew PO SCH (07:58)
[2022-03-18] MEDS: Allopurinol 100 MG Tab PO SCH (07:58)
[2022-03-18] MEDS: Metoprolol Succinate 50 MG Tab.ER PO SCH (07:58)
[2022-03-18] MEDS: Oxybutynin 5 MG Tab.ER PO SCH (07:58)
[2022-03-18] MEDS: Tamsulosin 0.4 MG Cap.ER PO SCH (07:59)
[2022-03-18] MEDS ORDERED: Furosemide 20 MG Tab PO SCH (08:00)
[2022-03-18] MEDS ORDERED: Non-Formulary Medication 1 Each (Canagliflozin [Invokana] 100 MG Tablet) PO SCH (08:00)
[2022-03-18] MEDS: Insulin Glarg,Human.Rec.Analog 100 Unit/ML SUBCUT SCH (08:03)
[2022-03-18] MEDS: Insulin Lispro 100 Units/ML 3 ML Vial SUBCUT SCH ×3 (08:12→17:21)
[2022-03-18 09:24] LABS: HEMOGLOBIN A1C 8.8 % (4.3-5.7)
[2022-03-18] MEDS: IMIQUIMOD TOP SCH ×2 (09:26→19:54)
[2022-03-18] MEDS: PRASUGREL 10 MG PO SCH (09:27)
[2022-03-18] MEDS: Magnesium Chloride 64 MG Tab.ER PO SCH (11:25)
[2022-03-18] MEDS: Heparin Sodium/0.45% NaCl 500 ML IV SCH (15:14)
[2022-03-18] MEDS: Gabapentin 100 MG Cap PO SCH (19:52)
[2022-03-18] MEDS: Isosorbide Mononitrate 60 MG Tab.ER PO SCH (19:52)
[2022-03-18] MEDS ORDERED: Polyethylene Glycol 3350 Powder 17 GM Packet PO PRN (20:01)
[2022-03-19] MEDS: Insulin Lispro 100 Units/ML 3 ML Vial SUBCUT SCH ×2 (07:39→11:42)
[2022-03-19] MEDS: Insulin Glarg,Human.Rec.Analog 100 Unit/ML SUBCUT SCH (07:39)
[2022-03-19] MEDS: Formoterol/Mometasone 100-5 MCG 8.8 GM Inhaler IH SCH (07:39)
[2022-03-19] MEDS: PRASUGREL 10 MG PO SCH (07:40)
[2022-03-19] MEDS: glipiZIDE 5 MG Tab PO SCH (07:40)
[2022-03-19] MEDS: Oxybutynin 5 MG Tab.ER PO SCH (07:41)
[2022-03-19] MEDS: Tamsulosin 0.4 MG Cap.ER PO SCH (07:41)
[2022-03-19] MEDS: Aspirin 81 MG Tab.Chew PO SCH (07:41)
[2022-03-19] MEDS: Allopurinol 100 MG Tab PO SCH (07:41)
[2022-03-19] MEDS: Metoprolol Succinate 50 MG Tab.ER PO SCH (07:42)
[2022-03-19] MEDS: Polyethylene Glycol 3350 Powder 17 GM Packet PO SCH (07:42)
[2022-03-19] MEDS: Pantoprazole 40 MG Vial IVPUSH SCH (07:46)
[2022-03-19] MEDS ORDERED: Fenofibrate,Micronized 134 MG Cap PO SCH (08:00)
[2022-03-19 08:29] LABS: ANION GAP 8.4 meq/L (7-15)
[2022-03-19] MEDS ORDERED: Magnesium Sulfate/Water 2 GM in Premix Bag 1 BAG IV ONE (09:18)
[2022-03-19] MEDS: Sodium Chloride 0.9% 1,000 ML IV SCH (11:29)
[2022-03-19] MEDS: Magnesium Chloride 64 MG Tab.ER PO SCH (11:42)
[2022-03-19 13:01] VITALS: BP 135/63; PULSE 60
[2022-03-19] MEDS ORDERED: Heparin Sodium 5,000 Units/ML Vial IVPUSH ONE (14:49)
[2022-03-19] MEDS: Heparin Sodium/0.45% NaCl 500 ML IV SCH (15:00)
== END 2022-03-19 15:11 | DRG 282 ==
LOC: LL.ED 12:39 → LL.MS 14:55 → OBSVTOIN 17:05
PROVIDERS: ADMIT Emergency Medicine; ATTEND Emergency Medicine
DX: I21.4 Non-ST elevation (NSTEMI) myocardial infarction (principal); I25.10 Atherosclerotic heart disease of native coronary artery without angina pectoris; E66.9 Obesity, unspecified; E11.42 Type 2 diabetes mellitus with diabetic polyneuropathy; K21.9 Gastro-esophageal reflux disease without esophagitis; E83.42 Hypomagnesemia; J44.9 Chronic obstructive pulmonary disease, unspecified; M19.90 Unspecified osteoarthritis, unspecified site; J45.909 Unspecified asthma, uncomplicated; E78.5 Hyperlipidemia, unspecified; E11.40 Type 2 diabetes mellitus with diabetic neuropathy, unspecified; Z88.8 Allergy status to other drugs, medicaments and biological substances; N40.0 Benign prostatic hyperplasia without lower urinary tract symptoms; I10 Essential (primary) hypertension; M10.9 Gout, unspecified; Z95.1 Presence of aortocoronary bypass graft; Z95.5 Presence of coronary angioplasty implant and graft; Z88.5 Allergy status to narcotic agent; Z79.4 Long term (current) use of insulin; Z79.82 Long term (current) use of aspirin; Z79.899 Other long term (current) drug therapy; Z87.891 Personal history of nicotine dependence; Z98.49 Cataract extraction status, unspecified eye; Z68.31 Body mass index [BMI] 31.0-31.9, adult; I25.2 Old myocardial infarction
CPT/HCPCS: 36415; 71045; 80053; 82550; 83605; 83735; 83880; 84484; 85025; 85379; 85610; 85730; 93005; A9270; J1644 ×2; J7030; 80048; 82947; 83036; 94640; 96361; 96365; 96366; 96376; 99285-25; C9113; J1815-GY; J3475; J3490

== ENCOUNTER 2022-03-26 12:08 | Emergency (ER) | payer MEDICARE, BC ==
[2022-03-26] MEDS ORDERED: Sodium Chloride 0.9% 10 ML Syringe FLUSH PRN (12:18)
[2022-03-26 12:47] LABS: ANION GAP 9.3 meq/L (7-15)
[2022-03-26 13:09] LABS: CORONAVIRUS COVID-19 NAA NEGATIVE (NEGATIVE); RESPIRATORY SYNCYTIAL VIR NAA NEGATIVE (NEGATIVE)
[2022-03-26] MEDS ORDERED: Sodium Chloride 0.9% 500 ML IV SCH (15:15)
[2022-03-26 18:30] VITALS: BP 158/64; PULSE 64
== END 2022-03-26 16:40 | disposition home or self-care (01) ==
LOC: LL.ED 12:08
DX: R55 Syncope and collapse (principal); I25.10 Atherosclerotic heart disease of native coronary artery without angina pectoris; E78.00 Pure hypercholesterolemia, unspecified; I10 Essential (primary) hypertension; E11.9 Type 2 diabetes mellitus without complications; E66.9 Obesity, unspecified; Z68.31 Body mass index [BMI] 31.0-31.9, adult; Z88.6 Allergy status to analgesic agent; Z88.8 Allergy status to other drugs, medicaments and biological substances; Z79.82 Long term (current) use of aspirin; Z79.4 Long term (current) use of insulin; Z79.899 Other long term (current) drug therapy; Z20.822 Contact with and (suspected) exposure to COVID-19; W10.9XXA Fall (on) (from) unspecified stairs and steps, initial encounter
CPT/HCPCS: 0241U; 36415; 70450; 80053; 82947; 84484; 85025; 93005; 99284; J7040

== ENCOUNTER 2022-08-02 16:18 | Emergency (ER) | payer MEDICARE, BC ==
[2022-08-02] MEDS ORDERED: Nitroglycerin 0.4 MG Tab.SL SL ONE (16:32)
[2022-08-02] MEDS ORDERED: Sodium Chloride 0.9% 10 ML Syringe FLUSH PRN (16:35)
[2022-08-02] MEDS ORDERED: Sodium Chloride 0.9% 1,000 ML IV ONE (16:36)
[2022-08-02 16:51] LABS: ANION GAP 5.4 meq/L (7-15)
[2022-08-02 19:09] VITALS: BP 162/69; PULSE 59
== END 2022-08-02 20:25 | disposition home or self-care (01) ==
LOC: LL.ED 16:18
DX: I20.9 Angina pectoris, unspecified (principal); I25.10 Atherosclerotic heart disease of native coronary artery without angina pectoris; E78.00 Pure hypercholesterolemia, unspecified; I10 Essential (primary) hypertension; I25.2 Old myocardial infarction; J45.909 Unspecified asthma, uncomplicated; E66.9 Obesity, unspecified; Z88.5 Allergy status to narcotic agent; Z88.8 Allergy status to other drugs, medicaments and biological substances; Z91.048 Other nonmedicinal substance allergy status; Z79.82 Long term (current) use of aspirin; Z79.4 Long term (current) use of insulin; Z79.899 Other long term (current) drug therapy; Z95.1 Presence of aortocoronary bypass graft; Z68.31 Body mass index [BMI] 31.0-31.9, adult
CPT/HCPCS: 36415; 71045; 80053; 82550; 83880; 84484; 85025; 85610; 93005; 93010; 96360; 99284; 99285-25; A9270-GY; J7030

== ENCOUNTER 2022-08-18 12:30 | Emergency (ER) | payer MEDICARE, BC ==
[2022-08-18 13:21] LABS: ANION GAP 6.5 meq/L (7-15); CHLORIDE,CL 103 mmol/L (98-107); ESTIMATED GFR 43 mL/min (>=60); SODIUM,NA 137 mmol/L (136-145)
[2022-08-18 16:14] VITALS: BP 131/61; PULSE 55
== END 2022-08-18 14:46 | disposition home or self-care (01) ==
LOC: LL.ED 12:30
DX: I95.1 Orthostatic hypotension (principal); J45.909 Unspecified asthma, uncomplicated; I25.10 Atherosclerotic heart disease of native coronary artery without angina pectoris; E78.00 Pure hypercholesterolemia, unspecified; I10 Essential (primary) hypertension; E11.40 Type 2 diabetes mellitus with diabetic neuropathy, unspecified; I25.2 Old myocardial infarction; E66.9 Obesity, unspecified; Z68.30 Body mass index [BMI] 30.0-30.9, adult; Z88.8 Allergy status to other drugs, medicaments and biological substances; Z79.82 Long term (current) use of aspirin; Z79.4 Long term (current) use of insulin; Z79.899 Other long term (current) drug therapy
CPT/HCPCS: 36415; 80053; 81003; 83735; 84484; 85025; 85379; 93005; 93010; 99284; 99285

== ENCOUNTER 2022-09-28 15:28 | Emergency (ER) | payer MEDICARE, BC ==
[2022-09-28 15:39] VITALS: BP 126/61; PULSE 74
== END 2022-09-28 16:40 | disposition home or self-care (01) ==
LOC: LL.ED 15:28
DX: H10.9 Unspecified conjunctivitis (principal); I25.810 Atherosclerosis of coronary artery bypass graft(s) without angina pectoris; I10 Essential (primary) hypertension; I25.2 Old myocardial infarction; J45.909 Unspecified asthma, uncomplicated; K21.9 Gastro-esophageal reflux disease without esophagitis; E11.40 Type 2 diabetes mellitus with diabetic neuropathy, unspecified; E66.9 Obesity, unspecified; Z68.31 Body mass index [BMI] 31.0-31.9, adult; Z87.891 Personal history of nicotine dependence; Z88.8 Allergy status to other drugs, medicaments and biological substances; Z88.5 Allergy status to narcotic agent; Z79.82 Long term (current) use of aspirin; Z79.4 Long term (current) use of insulin; Z79.899 Other long term (current) drug therapy
CPT/HCPCS: 99282; 99283

== ENCOUNTER 2023-06-22 13:37 | Inpatient (IN) | payer MEDICARE, BC ==
[2023-06-22 13:58] LABS: BASOPHILS ABSOLUTE AUTO 0.02 K/uL (0.00-0.20); BASOPHILS PERCENT AUTO 0.2 % (0.0-2.0); EOSINOPHILS PERCENT AUTO 3.9 % (0.0-5.0); HEMATOCRIT 38.8 % (39.0-49.0); HEMOGLOBIN 13.4 g/dL (13.1-16.8); LYMPHOCYTES ABSOLUTE AUTO 2.52 K/uL (0.50-3.50); LYMPHOCYTES PERCENT AUTO 24.3 % (10.0-50.0); MEAN CORPUSCULAR HEMOGLOBIN 31.4 pg (28.2-33.3); MEAN CORPUSCULAR HGB CONC 34.5 g/dL (31.7-36.0); MEAN CORPUSCULAR VOLUME 90.9 fL (84.0-98.0); MONOCYTES ABSOLUTE AUTO 0.71 K/uL (0.00-1.00); MONOCYTES PERCENT AUTO 6.8 % (2.0-14.0); NEUTROPHILS ABSOLUTE AUTO 6.72 K/uL (1.40-7.00); NEUTROPHILS PERCENT AUTO 64.8 % (45.0-80.0); PLATELET COUNT,PLT 179 K/uL (150-350); RED BLOOD CELL COUNT 4.27 M/uL (4.33-5.41); RED CELL DISTRIBUTION WIDTH 12.9 % (11.2-14.1); WHITE BLOOD CELL COUNT,WBC 10.4 K/uL (4.0-10.2)
[2023-06-22 14:17] LABS: ALANINE AMINOTRANSFERASE,ALT 13 U/L (12-78); ALBUMIN 3.6 g/dL (3.4-5.0); ALKALINE PHOSPHATASE 109 IU/L (46-116); ANION GAP 6.1 meq/L (7-15); ASPARTATE AMNIOTRANSFERASE,AST 16 U/L (15-37); BILIRUBIN TOTAL 0.5 mg/dL (0.2-1.0); BLOOD UREA NITROGEN,BUN 32 mg/dL (7-18); C-REACTIVE PROTEIN 2.68 mg/dL (0.05-0.30); CALCIUM 9.4 mg/dL (8.5-10.1); CARBON DIOXIDE,CO2 31.9 mmol/L (21.0-32.0); CHLORIDE,CL 102 mmol/L (98-107); CREATININE 1.49 mg/dL (0.51-1.17); GLUCOSE RANDOM 136 mg/dL (70-99); MAGNESIUM 1.6 mg/dL (1.8-2.4); POTASSIUM,K 3.9 mmol/L (3.5-5.1); PROTEIN TOTAL,TP 6.9 g/dL (6.4-8.2); SODIUM,NA 140 mmol/L (136-145)
[2023-06-22 14:21] LABS: ESTIMATED GFR 50 mL/min (>=60)
[2023-06-22] MEDS ORDERED: Clindamycin Phosphate in D5W 600 MG in Premix Bag 1 BAG IV SCH (15:15)
[2023-06-22] MEDS: cefTRIAXone 1 GM in Sodium Chloride 0.9% 100 ML IV SCH (16:30)
[2023-06-22] MEDS: metroNIDAZOLE/Normal Saline 500 MG in Premix Bag 1 BAG IV SCH (16:31)
[2023-06-22] MEDS ORDERED: Nitroglycerin 0.4 MG Tab.SL SL PRN (16:59)
[2023-06-22] MEDS ORDERED: Acetaminophen 500 MG Tab PO PRN (16:59)
[2023-06-22] MEDS ORDERED: ALPRAZolam 0.25 MG Tab PO PRN (16:59)
[2023-06-22] MEDS ORDERED: Albuterol 6.7 GM Inhaler INH PRN (16:59)
[2023-06-22] MEDS ORDERED: Glucagon,Human Recombinant 1 MG Vial IM PRN (17:17)
[2023-06-22] MEDS ORDERED: 50% Dextrose in Water 50 ML Syringe IVPUSH PRN (17:17)
[2023-06-22] MEDS: Insulin Regular, Human 100 Units/ML 3 ML Vial SUBCUT SCH (17:47)
[2023-06-22] MEDS: Gabapentin 100 MG Cap PO SCH (17:49)
[2023-06-22] MEDS ORDERED: VANCOmycin 2 GM/400 ML 400 ML IV ONE (18:00)
[2023-06-22] MEDS: VANCOmycin 1.5 GM/300 ML 1.5 GM in Premix Bag 1 BAG IV SCH (18:11)
[2023-06-22] MEDS: Isosorbide Mononitrate 60 MG Tab.ER PO SCH (20:11)
[2023-06-22] MEDS: Magnesium Sulfate/Water 2 GM in Premix Bag 1 BAG IV ONE (20:12)
[2023-06-22] MEDS: Sodium Chloride 0.9% 10 ML Syringe FLUSH PRN (20:15)
[2023-06-23] MEDS: Acetaminophen 500 MG Tab PO PRN (01:38)
[2023-06-23] MEDS: Sennosides/Docusate Sodium 50-8.6 MG Tab PO PRN (01:39)
[2023-06-23] MEDS: Acetaminophen 500 MG Tab ONE (01:56)
[2023-06-23 07:47] LABS: ANION GAP 6.9 meq/L (7-15); BLOOD UREA NITROGEN,BUN 28 mg/dL (7-18); CARBON DIOXIDE,CO2 30.1 mmol/L (21.0-32.0); CHLORIDE,CL 105 mmol/L (98-107); CREATININE 1.45 mg/dL (0.51-1.17); GLUCOSE RANDOM 86 mg/dL (70-99); MAGNESIUM 2.1 mg/dL (1.8-2.4); POTASSIUM,K 3.7 mmol/L (3.5-5.1); SODIUM,NA 142 mmol/L (136-145)
[2023-06-23] MEDS: Aspirin 81 MG Tab.EC PO SCH (07:52)
[2023-06-23] MEDS: Pantoprazole 40 MG Tab.CR PO SCH (07:52)
[2023-06-23] MEDS: Allopurinol 100 MG Tab PO SCH (07:52)
[2023-06-23] MEDS: FLUoxetine 20 MG Cap PO SCH (07:52)
[2023-06-23] MEDS: Furosemide 40 MG Tab PO SCH (07:53)
[2023-06-23] MEDS: Metoprolol Succinate 50 MG Tab.ER PO SCH (07:53)
[2023-06-23] MEDS: Tamsulosin 0.4 MG Cap.ER PO SCH (07:54)
[2023-06-23] MEDS: Insulin Glarg,Human.Rec.Analog 100 Unit/ML 10 ML Vial SUBCUT SCH (07:54)
[2023-06-23] MEDS: glipiZIDE 5 MG Tab PO SCH (07:54)
[2023-06-23] MEDS: Oxybutynin 5 MG Tab.ER PO SCH (07:54)
[2023-06-23] MEDS ORDERED: ASCORBIC ACID 100 MG PO SCH (08:00)
[2023-06-23 08:05] LABS: BASOPHILS ABSOLUTE AUTO 0.03 K/uL (0.00-0.20); BASOPHILS PERCENT AUTO 0.4 % (0.0-2.0); EOSINOPHILS ABSOLUTE AUTO 0.32 K/uL (0.00-0.50); EOSINOPHILS PERCENT AUTO 3.8 % (0.0-5.0); ESTIMATED GFR 52 mL/min (>=60); HEMATOCRIT 35.4 % (39.0-49.0); HEMOGLOBIN 11.7 g/dL (13.1-16.8); LYMPHOCYTES ABSOLUTE AUTO 2.75 K/uL (0.50-3.50); LYMPHOCYTES PERCENT AUTO 32.7 % (10.0-50.0); MEAN CORPUSCULAR HEMOGLOBIN 30.5 pg (28.2-33.3); MEAN CORPUSCULAR HGB CONC 33.1 g/dL (31.7-36.0); MEAN CORPUSCULAR VOLUME 92.4 fL (84.0-98.0); MONOCYTES ABSOLUTE AUTO 0.62 K/uL (0.00-1.00); MONOCYTES PERCENT AUTO 7.4 % (2.0-14.0); NEUTROPHILS ABSOLUTE AUTO 4.69 K/uL (1.40-7.00); NEUTROPHILS PERCENT AUTO 55.7 % (45.0-80.0); PLATELET COUNT,PLT 176 K/uL (150-350); RED BLOOD CELL COUNT 3.83 M/uL (4.33-5.41); RED CELL DISTRIBUTION WIDTH 12.9 % (11.2-14.1); WHITE BLOOD CELL COUNT,WBC 8.4 K/uL (4.0-10.2)
[2023-06-23] MEDS: Prasugrel Hcl [Effient] 10 MG Tablet PO SCH (12:03)
[2023-06-23] MEDS: Magnesium Chloride 64 MG Tab.ER PO SCH (12:03)
[2023-06-23] MEDS: Magnesium Hydroxide 400 MG/5 ML Susp 30 ML Cup PO PRN (13:23)
[2023-06-23] MEDS: Polyethylene Glycol 3350 Powder 17 GM Packet PO PRN (13:23)
[2023-06-25 07:40] LABS: BASOPHILS ABSOLUTE AUTO 0.02 K/uL (0.00-0.20); BASOPHILS PERCENT AUTO 0.3 % (0.0-2.0); EOSINOPHILS ABSOLUTE AUTO 0.49 K/uL (0.00-0.50); EOSINOPHILS PERCENT AUTO 7.2 % (0.0-5.0); HEMATOCRIT 36.7 % (39.0-49.0); HEMOGLOBIN 12.4 g/dL (13.1-16.8); LYMPHOCYTES ABSOLUTE AUTO 2.25 K/uL (0.50-3.50); MEAN CORPUSCULAR HGB CONC 33.8 g/dL (31.7-36.0); MEAN CORPUSCULAR VOLUME 91.8 fL (84.0-98.0); MONOCYTES ABSOLUTE AUTO 0.54 K/uL (0.00-1.00); MONOCYTES PERCENT AUTO 7.9 % (2.0-14.0); NEUTROPHILS ABSOLUTE AUTO 3.52 K/uL (1.40-7.00); NEUTROPHILS PERCENT AUTO 51.6 % (45.0-80.0); PLATELET COUNT,PLT 169 K/uL (150-350); RED CELL DISTRIBUTION WIDTH 12.8 % (11.2-14.1); WHITE BLOOD CELL COUNT,WBC 6.8 K/uL (4.0-10.2)
[2023-06-25 08:15] LABS: ALBUMIN 3.2 g/dL (3.4-5.0); ANION GAP 7.6 meq/L (7-15); BILIRUBIN TOTAL 0.4 mg/dL (0.2-1.0); CALCIUM 8.8 mg/dL (8.5-10.1); CARBON DIOXIDE,CO2 25.4 mmol/L (21.0-32.0); POTASSIUM,K 4.7 mmol/L (3.5-5.1); PROTEIN TOTAL,TP 6.3 g/dL (6.4-8.2)
[2023-06-25 08:20] LABS: CREATININE 1.24 mg/dL (0.51-1.17); EST CRCL DRUG DOSING (CG) 60.84 mL/min
[2023-06-25 08:43] LABS: INR 1.1
[2023-06-25 13:16] LABS: HEMOGLOBIN A1C 9.4 % (4.3-5.7)
[2023-06-26] MEDS: amLODIPine 5 MG Tab PO SCH (08:54)
[2023-06-28 08:02] LABS: BASOPHILS ABSOLUTE AUTO 0.03 K/uL (0.00-0.20); BASOPHILS PERCENT AUTO 0.4 % (0.0-2.0); EOSINOPHILS ABSOLUTE AUTO 0.65 K/uL (0.00-0.50); EOSINOPHILS PERCENT AUTO 7.9 % (0.0-5.0); HEMATOCRIT 37.4 % (39.0-49.0); HEMOGLOBIN 12.5 g/dL (13.1-16.8); LYMPHOCYTES ABSOLUTE AUTO 2.65 K/uL (0.50-3.50); LYMPHOCYTES PERCENT AUTO 32.3 % (10.0-50.0); MEAN CORPUSCULAR HEMOGLOBIN 30.7 pg (28.2-33.3); MEAN CORPUSCULAR HGB CONC 33.4 g/dL (31.7-36.0); MEAN CORPUSCULAR VOLUME 91.9 fL (84.0-98.0); MONOCYTES ABSOLUTE AUTO 0.62 K/uL (0.00-1.00); MONOCYTES PERCENT AUTO 7.6 % (2.0-14.0); NEUTROPHILS ABSOLUTE AUTO 4.25 K/uL (1.40-7.00); NEUTROPHILS PERCENT AUTO 51.8 % (45.0-80.0); PLATELET COUNT,PLT 184 K/uL (150-350); RED BLOOD CELL COUNT 4.07 M/uL (4.33-5.41); WHITE BLOOD CELL COUNT,WBC 8.2 K/uL (4.0-10.2)
[2023-06-28 08:53] LABS: ALBUMIN 3.1 g/dL (3.4-5.0); ANION GAP 6.8 meq/L (7-15); BILIRUBIN TOTAL 0.3 mg/dL (0.2-1.0); CALCIUM 8.7 mg/dL (8.5-10.1); CARBON DIOXIDE,CO2 27.2 mmol/L (21.0-32.0); CREATININE 1.21 mg/dL (0.51-1.17); EST CRCL DRUG DOSING (CG) 62.35 mL/min; MAGNESIUM 1.6 mg/dL (1.8-2.4); POTASSIUM,K 3.9 mmol/L (3.5-5.1); PROTEIN TOTAL,TP 6.2 g/dL (6.4-8.2)
[2023-06-28] MEDS: RANOLAZINE 500 MG PO SCH (12:02)
[2023-06-29 08:18] VITALS: BP 138/75; PULSE 73
== END 2023-06-29 11:27 | disposition home or self-care (01) | DRG 638 ==
LOC: LL.ED 13:37 → LL.MS 14:02
PROVIDERS: ADMIT Emergency Medicine; ATTEND Emergency Medicine
DX: E11.621 Type 2 diabetes mellitus with foot ulcer (principal); L97.529 Non-pressure chronic ulcer of other part of left foot with unspecified severity; E11.69 Type 2 diabetes mellitus with other specified complication; L03.116 Cellulitis of left lower limb; E11.628 Type 2 diabetes mellitus with other skin complications; I25.810 Atherosclerosis of coronary artery bypass graft(s) without angina pectoris; H91.90 Unspecified hearing loss, unspecified ear; I25.10 Atherosclerotic heart disease of native coronary artery without angina pectoris; E78.00 Pure hypercholesterolemia, unspecified; I10 Essential (primary) hypertension; E66.9 Obesity, unspecified; J45.909 Unspecified asthma, uncomplicated; E83.42 Hypomagnesemia; F41.9 Anxiety disorder, unspecified; Z91.048 Other nonmedicinal substance allergy status; R00.1 Bradycardia, unspecified; M10.9 Gout, unspecified; E11.65 Type 2 diabetes mellitus with hyperglycemia; E11.42 Type 2 diabetes mellitus with diabetic polyneuropathy; B95.62 Methicillin resistant Staphylococcus aureus infection as the cause of diseases classified elsewhere; K21.9 Gastro-esophageal reflux disease without esophagitis; Z88.5 Allergy status to narcotic agent; Z91.041 Radiographic dye allergy status; Z88.8 Allergy status to other drugs, medicaments and biological substances; Z90.89 Acquired absence of other organs; Z98.890 Other specified postprocedural states; Z79.4 Long term (current) use of insulin; Z79.82 Long term (current) use of aspirin; Z79.899 Other long term (current) drug therapy; I25.2 Old myocardial infarction; Z98.49 Cataract extraction status, unspecified eye; Z95.1 Presence of aortocoronary bypass graft; Z95.5 Presence of coronary angioplasty implant and graft; Z68.30 Body mass index [BMI] 30.0-30.9, adult
CPT/HCPCS: 36415; 73630-LT; 80048; 80053; 80202; 83036; 83605; 83735; 84145; 85025; 85610; 85652; 86140; 87070; 87186; 87205; 96365; 97165-GO; 99284-25; A9270-GY; J0696; J1815-GY; J1836; J3370; J3475; J3490

== ENCOUNTER 2024-05-30 11:01 | Emergency (ER) | payer MEDICARE, BC ==
[2024-05-30] MEDS: Acetaminophen/HYDROcodone 325-5 MG Tab PO ONE (11:59)
[2024-05-30 12:05] LABS: BASOPHILS ABSOLUTE AUTO 0.02 K/uL (0.00-0.20); BASOPHILS PERCENT AUTO 0.2 % (0.0-2.0); EOSINOPHILS ABSOLUTE AUTO 0.23 K/uL (0.00-0.50); EOSINOPHILS PERCENT AUTO 2.7 % (0.0-5.0); HEMATOCRIT 36.6 % (39.0-49.0); HEMOGLOBIN 12.8 g/dL (13.1-16.8); IMMATURE GRAN ABSOLUTE AUTO 0.01 10^3/uL (0.00-0.04); IMMATURE GRAN PERCENT AUTO 0.1 % (0.0-0.4); LYMPHOCYTES ABSOLUTE AUTO 2.21 K/uL (0.50-3.50); LYMPHOCYTES PERCENT AUTO 25.8 % (10.0-50.0); MEAN CORPUSCULAR HEMOGLOBIN 31.6 pg (28.2-33.3); MEAN CORPUSCULAR VOLUME 90.4 fL (84.0-98.0); MONOCYTES ABSOLUTE AUTO 0.57 K/uL (0.00-1.00); MONOCYTES PERCENT AUTO 6.7 % (2.0-14.0); NEUTROPHILS ABSOLUTE AUTO 5.52 K/uL (1.40-7.00); NEUTROPHILS PERCENT AUTO 64.5 % (45.0-80.0); PLATELET COUNT,PLT 165 K/uL (150-350); RED BLOOD CELL COUNT 4.05 M/uL (4.33-5.41); WHITE BLOOD CELL COUNT,WBC 8.6 K/uL (4.0-10.2)
[2024-05-30 12:39] LABS: ALANINE AMINOTRANSFERASE,ALT 24 U/L (12-78); ALBUMIN 3.2 g/dL (3.4-5.0); ALKALINE PHOSPHATASE 128 IU/L (46-116); ANION GAP 9.5 meq/L (7-15); ASPARTATE AMNIOTRANSFERASE,AST 21 U/L (15-37); BILIRUBIN TOTAL 0.5 mg/dL (0.2-1.0); BLOOD UREA NITROGEN,BUN 37 mg/dL (7-18); CALCIUM 9.2 mg/dL (8.5-10.1); CARBON DIOXIDE,CO2 27.5 mmol/L (21.0-32.0); CHLORIDE,CL 101 mmol/L (98-107); CREATININE 1.56 mg/dL (0.51-1.17); GLUCOSE RANDOM 273 mg/dL (70-99); POTASSIUM,K 3.8 mmol/L (3.5-5.1); PROTEIN TOTAL,TP 6.5 g/dL (6.4-8.2); SODIUM,NA 138 mmol/L (136-145)
[2024-05-30 12:41] LABS: ESTIMATED GFR 47 mL/min (>=60)
[2024-05-30 13:29] VITALS: BP 110/61; PULSE 56
== END 2024-05-30 13:20 | disposition home or self-care (01) ==
LOC: LL.ED 11:01 → SUPCPDRO 11:01 → LL.ED 13:20
DX: M25.511 Pain in right shoulder (principal); R42 Dizziness and giddiness; I25.10 Atherosclerotic heart disease of native coronary artery without angina pectoris; I25.2 Old myocardial infarction; I10 Essential (primary) hypertension; E78.00 Pure hypercholesterolemia, unspecified; J45.909 Unspecified asthma, uncomplicated; K21.9 Gastro-esophageal reflux disease without esophagitis; E11.42 Type 2 diabetes mellitus with diabetic polyneuropathy; E66.9 Obesity, unspecified; Z87.891 Personal history of nicotine dependence; Z95.5 Presence of coronary angioplasty implant and graft; Z88.8 Allergy status to other drugs, medicaments and biological substances; Z88.5 Allergy status to narcotic agent; Z79.4 Long term (current) use of insulin; Z79.82 Long term (current) use of aspirin; Z79.51 Long term (current) use of inhaled steroids; Z79.899 Other long term (current) drug therapy
CPT/HCPCS: 36415; 73000-RT; 73030-RT; 80053; 85025; 99284; A9270-GY

== ENCOUNTER 2025-02-19 13:43 | Emergency (ER) | payer MEDICARE, BC ==
[2025-02-19] MEDS: Nitroglycerin 0.4 MG Tab.SL ONE (14:00)
[2025-02-19 14:07] LABS: BASOPHILS ABSOLUTE AUTO 0.03 K/uL (0.00-0.20); BASOPHILS PERCENT AUTO 0.3 % (0.0-2.0); EOSINOPHILS ABSOLUTE AUTO 0.25 K/uL (0.00-0.50); EOSINOPHILS PERCENT AUTO 2.5 % (0.0-5.0); IMMATURE GRAN ABSOLUTE AUTO 0.02 10^3/uL (0.00-0.04); IMMATURE GRAN PERCENT AUTO 0.2 % (0.0-0.4); LYMPHOCYTES ABSOLUTE AUTO 3.57 K/uL (0.50-3.50); LYMPHOCYTES PERCENT AUTO 35.9 % (10.0-50.0); MONOCYTES ABSOLUTE AUTO 0.54 K/uL (0.00-1.00); MONOCYTES PERCENT AUTO 5.4 % (2.0-14.0); NEUTROPHILS ABSOLUTE AUTO 5.53 K/uL (1.40-7.00); NEUTROPHILS PERCENT AUTO 55.7 % (45.0-80.0); PLATELET COUNT,PLT 148 K/uL (150-350); RED BLOOD CELL COUNT 4.52 M/uL (4.33-5.41); RED CELL DISTRIBUTION WIDTH 12.3 % (11.2-14.1); WHITE BLOOD CELL COUNT,WBC 9.9 K/uL (4.0-10.2)
[2025-02-19] MEDS: fentaNYL 50 MCG/ML SDV IVPUSH ONE (14:13)
[2025-02-19] MEDS: Sodium Chloride 0.9% 10 ML Syringe FLUSH PRN (14:13)
[2025-02-19] MEDS ORDERED: Heparin Sodium/0.45% NaCl 500 ML IV SCH (14:15)
[2025-02-19] MEDS: Heparin Sodium 5,000 Units/ML Vial IVPUSH ONE (14:16)
[2025-02-19] MEDS: Heparin Sodium/0.45% NaCl 500 ML IV SCH (14:19)
[2025-02-19 14:32] LABS: INR 0.9 (0.9-1.1); PTT,PARTIAL THROMBOPLSTIN TIME 24.2 SEC (23.8-34.4)
[2025-02-19 14:38] LABS: BILIRUBIN TOTAL 0.6 mg/dL (0.2-1.0); BLOOD UREA NITROGEN,BUN 31.0 mg/dL (7-18); CARBON DIOXIDE,CO2 26.0 mmol/L (21.0-32.0); CHLORIDE,CL 96.0 mmol/L (98-107); CREATININE 1.57 mg/dL (0.51-1.17); EST CRCL DRUG DOSING (CG) 47.37 mL/min; POTASSIUM,K 4.2 mmol/L (3.5-5.1); PRO B-TYPE NATRIUR PEPT,BNPPRO 820.0 pg/mL (0-125); PROTEIN TOTAL,TP 7.1 g/dL (6.4-8.2); SODIUM,NA 135.0 mmol/L (136-145); TSH ULTRASENSITIVE 1.3 mIU/mL (0.358-3.740)
[2025-02-19 14:40] LABS: ESTIMATED GFR 47.0 mL/min (>=60); GLUCOSE RANDOM 595.0 mg/dL (70-99)
[2025-02-19 14:50] LABS: ASPARTATE AMNIOTRANSFERASE,AST 54.0 U/L (15-37)
[2025-02-19] MEDS ORDERED: 50% Dextrose in Water 50 ML Syringe IVPUSH PRN (14:54)
[2025-02-19] MEDS: Insulin Regular, Human 100 Units/ML 3 ML Vial IV ONE (14:59)
[2025-02-19 15:16] LABS: ALANINE AMINOTRANSFERASE,ALT 34.0 U/L (12-78)
[2025-02-19 15:38] VITALS: BP 147/77; PULSE 82
== END 2025-02-19 16:24 ==
LOC: LL.ED 13:43
DX: I21.4 Non-ST elevation (NSTEMI) myocardial infarction (principal); I24.9 Acute ischemic heart disease, unspecified; I25.810 Atherosclerosis of coronary artery bypass graft(s) without angina pectoris; I10 Essential (primary) hypertension; E78.00 Pure hypercholesterolemia, unspecified; E11.9 Type 2 diabetes mellitus without complications; J45.909 Unspecified asthma, uncomplicated; E66.9 Obesity, unspecified; Z95.5 Presence of coronary angioplasty implant and graft; Z88.8 Allergy status to other drugs, medicaments and biological substances; Z88.5 Allergy status to narcotic agent; Z91.048 Other nonmedicinal substance allergy status; Z79.4 Long term (current) use of insulin; Z79.82 Long term (current) use of aspirin; Z79.899 Other long term (current) drug therapy; Z68.25 Body mass index [BMI] 25.0-25.9, adult
CPT/HCPCS: 36415; 80053; 82947; 83735; 83880; 84443; 84484; 85025; 85610; 85730; 93005; 93010; 96365; 96366; 96375; 99284; 99285-25; A9270-GY; J1644; J1815-GY; J3010